=== PATIENT | female | born 1990 | race African-American/Black ===

== ENCOUNTER 2022-08-11 11:35 | Emergency (ER) | payer SELFPAY ==
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
[2022-08-11 11:47] VITALS: BP 162/78; PULSE 78; RESP 16; TEMP 36.6; O2SAT 97; BMI 32.9
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
--- OUTSIDE RECORDS SUMMARY | 2022-08-11 12:07 | XMS_ITS | Continuity of Care Document ---
Author Name Unknown Organization [facility] Address [address] [facility], [address]r d Floor, [address] [place] [address]- Care Team Providers Care Early Childhood Education Specialist Name Role Phone Alba Greene MD Primary Care Physician ( [phone] Encounter [facility] Date(s): 07/04/20 - 10/29/20 [facility] [address] [facility], 3rd Floor, [address] [place] [id number] Attending Physician: Neris Nazario MD Admitting Physician: Neris Nazario MD Allergies, Adverse Reactions, Alerts Substance Reaction Severity Status Latex itchiness, redness Active Immunizations Given and Recorded Vaccine Date Status Refusal Reason influenza virus vaccine, inactivated 12/22/18 Give n Not Given Vaccine Date Status Refusal Reason pneumococcal 23-valent vaccine 05/04/19 Not Given Parent Or Guardian Refuses Medications acetaZOLAMIDE 250 mg oral tablet 250 mg, 1, tablet, By Mouth, 2 times a day, # 60 tablet, Refills 0, Tot. Refills 0, Maintenance, 10/22/20 13:47:00 EDT, Route to Pharmacy Electronically, [facility]/pharmacy #[id number], 165, cm, 10/02/20 15:12:00 EDT, Height, 110.6, kg, 05/15/19 15:42:00 EST, Dry... Start Date: 10/22/20 Stop Date: 11/21/20 Status: Ordered BP cuff and monitor BP cuff and monitor, See Instructions, # 1 each, Refills 0, Tot. Refills 0, Maintenance, Dx: HTN ICD Code: I10 Check once a day and keep log, 08/27/20 16:50:00 EDT, Supply, 165, cm, 08/27/20 15:58:00EDT, Height, 110.6, kg, 05/15/19 15:42:00 EST, . Start Date: 08/27/20 Status: Ordered calcitriol 0.5 mcg oral capsule 1 capsule = 0.5 mcg, By Mouth, 2 times a day, # 60 capsule, 11 Refills, Maintenance, 10/02/20 6:52:00 EDT, Capsule, [facility]/pharmacy #[id number], 165, cm, 08/27/20 15:58:00 EDT, Height, 110.6, kg, 05/15/19 15:42:00 EST, Dry Weight Start Date: 10/02/20 Status: Ordered Caltrate 600 + D oral tablet 2 tablet, By Mouth, 3 times a day, # 180 tablet, 3 Refills, Maintenance, 05/10/19 15:56:00 EST, Tablet, [facility]/pharmacy #[id number], 2 tablet By Mouth 3 times a day,x30 days, 165.1, cm, 05/10/19 15:28:00 EST,Height, 115.3, kg, 05/05/19 12:45:00 EST, Dry Weight Start Date: 05/10/19 Stop Date: 09/07/19 Status: Ordered labetalol 100 mg oral tablet 1 tablet = 100 mg, By Mouth, 2 times a day, # 60 tablet, 2 Refills, Maintenance, 11/01/19 13:27:00 EDT, Tablet, [facility]/pharmacy #[id number], 165, cm, 10/30/19 13:34:00 EDT, Height, 110.6, kg, 05/15/19 15:42:00 EST, Dry Weight Start Date: 11/01/19 Status: Ordered levothyroxine 150 mcg (0.15 mg) oral tablet 1 tablet = 150 mcg, By Mouth, Daily, # 30 tablet, 11 Refills, Maintenance, 10/02/20 6:52:00 EDT, [facility]/pharmacy #[id number], Partial fill upon patient request if the prescription is for a schedule II opioid drug., 165, cm, 08/27/20 15:58:00 EDT, Height, 110.6... Start Date: 10/02/20 Status: Ordered potassium chloride 10 mEq oral tablet, extended release 2 tablet = 20 mEq, By Mouth, Daily, # 10 tablet, 3 Refills, Maintenance, 06/15/19 10:45:00 EDT, ER Tablet, [id number], 165, cm, 05/25/19 9:28:00 EST, Height, 110.6, kg, 05/15/19 15:42:00 EST,Dry Weight Start Date: 06/15/19 Stop Date: 07/05/19 Status: Ordered Multivitamins with Folic Acid 0.8 mg oral tablet 1 tablet, By Mouth, Daily, # 180 tablet, 5 Refills, Maintenance, 09/12/18 13:44:10 EDT, Tablet Start Date: 09/12/18 Stop Date: 08/27/21 Status: Ordered Tylenol 325 mg oral capsule 2 capsule = 650 mg, By Mouth, Every 6 hours, PRN as needed for pain, # 240 capsule, 1 Refills, Maintenance, 06/15/19 10:47:00 EDT, Capsule, [id number], 165, cm, 05/25/19 9:28:00 EST, Height, 110.6, kg, 05/15/19 15:42:00 EST, Dry Weight Start Date: 06/15/19 Status: Ordered Problem List Condition Effective Dates [...] OBI. 5baseline labs ordered at OBI 6w/ 1st pregnacy. 7~age 23/24. Pt was seen in [...]
--- OUTSIDE RECORDS SUMMARY | 2022-08-11 12:07 | XMS_ITS | Continuity of Care Document ---
Author Name Unknown Organization [facility] Address [address] [facility], 3r d Floor, [address] [place] [address]- Care Team Providers Care Steam Box Operator Name Role Phone Isela SOLANO, Jasmin Tellez Primary Care Physician Encounter [facility] Date(s): 11/22/19 - 11/29/19 [facility] [address], [address] Floor, [address] [place] [address]- [facility] Attending Physician: Chuck BLANCO, Kwasi Duncan Referring Physician: Gautam Joel Allergies, Adverse Reactions, Alerts Substance Reaction Severity Status Latex itchiness, redness Active Immunizations Given and Recorded Vaccine Date Status Refusal Reason influenza virus vaccine, inactivated 12/22/18 Give n Not Given Vaccine Date Status Refusal Reason pneumococcal 23-valent vaccine 05/04/19 Not Given Parent Or Guardian Refuses Medications acetaZOLAMIDE 250 mg oral tablet 500 mg, 2, tablet, By Mouth, 2 times a day, # 120 tablet, Refills 6, Tot. Refills 6, Maintenance, 05/25/19 9:52:00 EST, Route to Pharmacy Electronically, [id number], 165, cm, 05/25/19 9:28:00EST, Height, 110.6, kg, 05/15/19 15:42:00 EST, Dry... Start Date: 05/25/19 Stop Date: 12/21/19 Status: Ordered calcitriol 0.5 mcg oral capsule 1 capsule = 0.5 mcg, By Mouth, 2 times a day, # 60 capsule, 5 Refills, Maintenance, 09/03/19 8:18:00 EDT, Capsule, [id number], 165, cm, 05/25/19 9:28:00 EST, Height, 110.6, kg, 05/15/19 15:42:00 EST, Dry Weight Start Date: 09/03/19 Status: Ordered Caltrate 600 + D oral tablet 2 tablet, By Mouth, 3 times a day, # 180 tablet, 3 Refills, Maintenance, 05/10/19 15:56:00 EST, Tablet, [facility]/pharmacy #[id number], 2 tablet By Mouth 3 times a day,x30 days, 165.1, cm, 05/10/19 15:28:00 EST,Height, 115.3, kg, 05/05/19 12:45:00 EST, Dry Weight Start Date: 05/10/19 Stop Date: 09/07/19 Status: Ordered labetalol 100 mg oral tablet 1 tablet = 100 mg, By Mouth, 2 times a day, # 60 tablet, 2 Refills, Maintenance, 11/01/19 13:27:00 EDT, Tablet, [facility]/pharmacy #[id number], 165, cm, 10/30/19 13:34:00 EDT, Height, 110.6, kg, 05/15/19 15:42:00 EST, Dry Weight Start Date: 11/01/19 Status: Ordered levothyroxine 0.2 mg oral tablet 1 tablet = 200 mcg, By Mouth, Daily, # 90 tablet, 3 Refills, Maintenance, 03/02/19 9:52:58 EST, Tablet, 171, cm, 03/02/19 8:47:24 EST, Height, 111.6, kg, 12/29/18 8:33:45 EDT, Dry Weight Start Date: 03/02/19 Status: Ordered levothyroxine 175 mcg (0.175 mg) oral tablet 1 tablet = 175 mcg, By Mouth, Daily, # 60 tablet, 0 Refills, Maintenance, 10/31/19 21:10:00 EDT, Tablet, [facility]/pharmacy #[id number], 165, cm, 10/30/19 13:34:00 EDT, Height, 110.6, kg, 05/15/19 15:42:00 EST, Dry Weight Start Date: 10/31/19 Status: Ordered potassium chloride 10 mEq oral tablet, extended release 2 tablet = 20 mEq, By Mouth, Daily, # 10 tablet, 3 Refills, Maintenance, 06/15/19 10:45:00 EDT, ER Tablet, [facility]/pharmacy #[id number], 165, cm, 05/25/19 9:28:00 EST, Height, [...] of June 2018 (intermittent will eat seafood). Vital Signs Most recent to oldest [Reference Range]: 1 Height 165 cm (11/22/19 8:36 AM) Oxygen Saturation [94-100 %] 98 % (11/22/19 8:36 AM) Pulse Rate [55-90 bpm] 77 bpm (11/22/19 8:36 AM) Blood Pressure [90-138/55-84 mm Hg] 151/ 101mm Hg *H* (11/22/19 8:36 AM) Temperature [96.8-100.4 DegF] 98.2 DegF (11/22/19 8:36 AM) Blood pressure sites Arm, left (11/22/19 8:36 AM) Temperature Route Temporal (11/22/19 8:36 AM) Social History Social History Type Response Smoking Status Never (less than 100 in lifetime); Tobacco user in household: No entered on: 03/17/18 Sex
--- OUTSIDE RECORDS SUMMARY | 2022-08-11 12:07 | XMS_ITS | Continuity of Care Document ---
Author Name Unknown Organization [facility] ter Address [address] [place] [address]- Care Team Providers Care Consolidator Name Role Phone Teja Jonathan MONTOYA Primary Care Physician [phone] Encounter [facility] Date(s): 04/26/19 - 04/26/[address] [address]- [facility] Attending Physician: Kwasi Levy MD Allergies, Adverse Reactions, Alerts Substance Reaction Severity Status Latex itchiness, redness Active Immunizations Given and Recorded Vaccine Date Status Refusal Reason influenza virus vaccine, inactivated 12/22/18 Give n Medications aspirin 81 mg oral delayed release tablet 81 mg, 1, tablet, By Mouth, Daily, # 90 tablet, Refills 2, Tot. Refills 2, Maintenance, 12/01/18 17:07:48 EDT, Route to Pharmacy Electronically, [id number], [id number] Start Date: 12/01/18 Status: Ordered [...] 0 Refills, Maintenance, 04/07/19 14:34:00 EST, Capsule, [facility]/pharmacy #[id number], 165, cm, 04/07/19 12:09:00 EST, Height, 111, kg, 04/03/19 1:32:00 EST, Dry Weight Start Date: 04/07/19 Status: Ordered ibuprofen 800 mg oral tablet 800 mg, 1, tablet, By Mouth, Every 8 hours, not to exceed 3200 mg/day with food or milk, # 40 tablet, Refills 0, Tot. Refills 0, Acute 05/09/19 14:34:00 EST, 04/07/19 14:34:00 EST, Route to Pharmacy Electronically, [facility]/pharmacy #[id number], 165, cm, ... Start Date: 04/07/19 [...] 14:35:00 EST, 04/07/19 14:34:00 EST, REC Powder, [facility]/pharmacy #[id number], 17 Gm By Mouth Daily,Instr:dissolvein water [...] 04/07/19 14:34:00 EST, Route to Pharmacy Electronically, [facility]/pharmacy #[id number], 165, cm, 04/07/19 12:09:00 EST, Height, [...] 04/29/19 11:19:00 EST, 04/23/19 11:19:00 EST, Tablet, [facility]/pharmacy #[id number], 168, cm, 04/23/19 11:0... Start Date: [...]
--- OUTSIDE RECORDS SUMMARY | 2022-08-11 12:07 | XMS_ITS | Continuity of Care Document ---
Author Name Unknown Organization [facility] Address [address] [place] [address]- Care Team Providers Care Arcade Attendant Name Role Phone Jc SOLANO, Alba Chatterjee Primary Care Physician ( [phone] Encounter [facility] Date(s): 09/24/21 - 10/24/21 [facility] [address] [place] [address] [id number] Attending Physician: Nolvia Rojas Admitting Physician: Nolvia Rojas Referring Physician: Nolvia Rojas Allergies, Adverse Reactions, Alerts Substance Reaction Severity Status Latex itchiness, redness Active Immunizations Given and Recorded Vaccine Date Status Refusal Reason influenza virus vaccine, inactivated 12/22/18 Give n Not Given Vaccine Date Status Refusal Reason pneumococcal 23-valent vaccine 05/04/19 Not Given Parent Or Guardian Refuses Medications BP cuff and monitor BP cuff and monitor, See Instructions, # 1 each, Refills 0, Tot. Refills 0, Maintenance, Dx: HTN ICD Code: I10 Check once a day and keep log, 08/27/20 16:50:00 EDT, Supply, 165, cm, 08/27/20 15:58:00EDT, Height, 110.6, kg, 05/15/19 15:42:00 Dr.. GEOVANNI. Start Date: 08/27/20 Status: Ordered calcitriol 0.5 mcg oral capsule 1 capsule = 0.5 mcg, By Mouth, 2 times a day, # 60 capsule, 11 Refills, Maintenance, 10/01/21 13:02:00 EDT, Capsule, [id number], 168, cm, 09/24/21 23:34:00 EDT, Height, 109, kg, 09/24/21 23:34:00 EDT, Dry Weight Start Date: 10/01/21 Status: Ordered Caltrate 600 + D oral tablet 2 tablet, By Mouth, 2 times a day, # 120 tablet, 11 Refills, Maintenance, 11/28/20 15:35:00 EDT, Tablet, [id number], 2 tablet By Mouth 2 times a day,x30 days, 165, cm, 10/02/20 15:12:00 EDT, Height, 110.6, kg, 05/15/19 15:42:00 EST, Dry Weight Start Date: 11/28/20 Stop Date: 11/23/21 Status: Ordered levothyroxine 150 mcg (0.15 mg) oral tablet 1 tablet = 150 mcg, By Mouth, Daily, # 30 tablet, 11 Refills, Maintenance, 10/01/21 13:01:00 EDT, [id number], Partial fill upon patient request if the prescription is for a schedule II opioiddrug., 168, cm, 09/24/21 23:34:00 EDT, Height, 109,... Start Date: 10/01/21 Status: Ordered Multivitamins with Folic Acid 0.8 [...] carcinoma(Confirmed) Active Migraine without aura(Confirmed)(Stable) 3 Active Obese class II(Confirmed) Active Pheochromocytoma(Confirmed) 4 Active Multiple endocrine neoplasia(Confirmed) [...]
--- OUTSIDE RECORDS SUMMARY | 2022-08-11 12:07 | XMS_ITS | Continuity of Care Document ---
Author Name Unknown Organization [facility] Address [address] [place] [address]- Care Team Providers Care Electronic Maintenance Supervisor Name Role Phone Isela SOLANO, Jasmin Tellez Primary Care Physician Encounter [facility] Date(s): 05/05/20 - 06/06/20 [facility] [address] [place] [id number] Attending Physician: Sally Thompson MD Admitting Physician: Sally Thompson MD Referring Physician: Jasmin Weiss MD Allergies, Adverse Reactions, Alerts Substance Reaction [...] tablet, Refills 6, Tot. Refills 6, Maintenance, 01/21/20 11:44:00 EST, Route to Pharmacy Electronically, [facility]/pharmacy #[id number], 165, cm, 11/30/19 13:28:00 EDT, Height, 110.6, kg, 05/15/19 15:42:00 EST, . Start Date: 01/21/20 Stop Date: 08/18/20 Status: Ordered calcitriol 0.5 mcg oral capsule 1 capsule = 0.5 mcg, By Mouth, 2 times a day, # 60 capsule, 5 Refills, Maintenance, 03/17/20 11:38:00 EST, Capsule, [id number], 165, cm, 11/30/19 13:28:00 EDT, Height, 110.6, kg, 05/15/19 15:42:00 EST, Dry Weight Start Date: 03/17/20 Status: Ordered Caltrate 600 + D oral tablet 2 tablet, By Mouth, 3 times a day, # 180 tablet, 3 Refills, Maintenance, 05/10/19 15:56:00 EST, Tablet, [facility]/pharmacy #[id number], 2 tablet By Mouth 3 times a day,x30 days, 165.1, cm, 05/10/19 15:28:00 EST,Height, 115.3, kg, 05/05/19 12:45:00 EST, Dry Weight Start Date: 05/10/19 Stop Date: 09/07/19 Status: Ordered labetalol 100 mg oral tablet 1 tablet = 100 mg, By Mouth, 2 times a day, # 60 tablet, 2 Refills, Maintenance, 11/01/19 13:27:00 EDT, Tablet, [facility]/pharmacy #[id number], 165, cm, 10/30/19 13:34:00 EDT, Height, 110.6, kg, 05/15/19 15:42:00 EST, Dry Weight Start Date: 11/01/19 Status: Ordered levothyroxine 150 mcg (0.15 mg) oral tablet 1 tablet = 150 mcg, By Mouth, Daily, # 30 tablet, 1 Refills, Maintenance, 02/29/20 9:02:00 EST, [facility]/pharmacy #[id number], Partial fill upon patient request if the prescription is for a schedule II opioid drug., 165, cm, 11/30/19 13:28:00 EDT, Height, 110.6,... Start Date: 02/29/20 Status: Ordered potassium chloride 10 mEq oral tablet, extended release 2 tablet = 20 mEq, By Mouth, Daily, # 10 tablet, 3 Refills, Maintenance, 06/15/19 10:45:00 EDT, ER Tablet, [facility]/pharmacy #[id number], 165, cm, 05/25/19 9:28:00 EST, Height, [...]
--- OUTSIDE RECORDS SUMMARY | 2022-08-11 12:07 | XMS_ITS | Continuity of Care Document ---
Author Name Unknown Organization [facility] Address [address] [place] [address]- Care Team Providers Care Ecommerce Manager Name Role Phone Isela SOLANO, Jasmin Tellez Primary Care Physician Encounter [facility] Date(s): 12/04/19 - 01/03/20 [facility] [address] [place] [id number] Allergies, Adverse Reactions, Alerts Substance Reaction Severity [...] 05/25/19 9:52:00 EST, Route to Pharmacy Electronically, [facility]/pharmacy #[id number], 165, cm, 05/25/19 9:28:00EST, Height, 110.6, kg, 05/15/19 15:42:00 EST, Dry... Start Date: 05/25/19 Stop Date: 12/21/19 Status: Ordered calcitriol 0.5 mcg oral capsule 1 capsule = 0.5 mcg, By Mouth, 2 times a day, # 60 capsule, 5 Refills, Maintenance, 09/03/19 8:18:00 EDT, Capsule, [facility]/pharmacy #[id number], 165, cm, 05/25/19 9:28:00 EST, Height, 110.6, kg, 05/15/19 15:42:00 EST, Dry Weight Start Date: 09/03/19 Status: Ordered Caltrate 600 + D oral tablet 2 tablet, By Mouth, 3 times a day, # 180 tablet, 3 Refills, Maintenance, 05/10/19 15:56:00 EST, Tablet, [facility]/pharmacy #[id number], 2 tablet By Mouth 3 times a day,x30 days, 165.1, cm, 05/10/19 15:28:00 EST,Height, 115.3, kg, 05/05/19 12:45:00 EST, Dry Weight Start Date: 05/10/19 Stop Date: 09/07/19 Status: Ordered labetalol 100 mg oral tablet 1 tablet = 100 mg, By Mouth, 2 times a day, # 60 tablet, 2 Refills, Maintenance, 11/01/19 13:27:00 EDT, Tablet, [facility]/pharmacy #[id number], 165, cm, 10/30/19 13:34:00 EDT, Height, [...] 0 Refills, Maintenance, 10/31/19 21:10:00 EDT, Tablet, [facility]/pharmacy #[id number], 165, cm, 10/30/19 13:34:00 EDT, Height, 110.6, kg, 05/15/19 15:42:00 EST, Dry Weight Start Date: 10/31/19 Status: Ordered potassium chloride 10 mEq oral tablet, extended release 2 tablet = 20 mEq, By Mouth, Daily, # 10 tablet, 3 Refills, Maintenance, 06/15/19 10:45:00 EDT, ER Tablet, [facility]/pharmacy #[id number], 165, cm, 05/25/19 9:28:00 EST, Height, [...]
--- OUTSIDE RECORDS SUMMARY | 2022-08-11 12:07 | XMS_ITS | Continuity of Care Document ---
Author Name Unknown Organization [facility] Address Unknown Care Team Providers Care Clothes Marker Name Role Phone Alba Greene MD Primary Care Physician [place] [facility] 07/22/21 [facility] Allergies, Adverse Reactions, Alerts Substance Reaction Severity [...] 11 Refills, Maintenance, 10/02/20 6:52:00 EDT, Capsule, [id number], 165, cm, 08/27/20 15:58:00 EDT, Height, [...] Date: 11/28/20 Stop Date: 11/23/21 Status: Ordered labetalol 100 mg oral tablet 1 tablet = 100 mg, By Mouth, 2 times a day, # 60 tablet, 2 Refills, Maintenance, 11/01/19 13:27:00 EDT, Tablet, [facility]/pharmacy #[id number], 165, cm, 10/30/19 13:34:00 EDT, Height, 110.6, kg, 05/15/19 15:42:00 EST, Dry Weight Start Date: 11/01/19 Status: Ordered levothyroxine 150 mcg (0.15 mg) oral tablet 1 tablet = 150 mcg, By Mouth, Daily, # 30 tablet, 11 Refills, Maintenance, 10/02/20 6:52:00 EDT, [facility]/pharmacy #[id number], Partial fill upon patient request if the prescription is for a schedule II opioid drug., 165, cm, 08/27/20 15:58:00 EDT, Height, 110.6... Start Date: 10/02/20 Status: Ordered potassium chloride 10 mEq oral tablet, extended release 2 tablet = 20 mEq, By Mouth, Daily, # 10 tablet, 3 Refills, Maintenance, 06/15/19 10:45:00 EDT, ER Tablet, [facility]/pharmacy #[id number], 165, cm, 05/25/19 9:28:00 EST, [...] 1 Refills, Maintenance, 06/15/19 10:47:00 EDT, Capsule, [facility]/pharmacy #[id number], 165, cm, 05/25/19 9:28:00 EST, [...] after [facility]. 5baseline labs ordered at [facility] 6w pregnacy. 7~age 23/24. Pt was seen in [...]
--- OUTSIDE RECORDS SUMMARY | 2022-08-11 12:07 | XMS_ITS | Continuity of Care Document ---
Author Name Unknown Organization [facility] Address [address] [place] [address]- Care Team Providers Care Waste Management Recycling Technician Name Role Phone Jonathan Lezama DO Primary Care Physician Encounter [facility] [place] Date(s): 06/20/19 - 06/30/[address] [address]- [facility] Attending Physician: AdmNolvia brooks Admitting Physician: AdmtrNolvia Referring Physician: Admtr, Nolvia Allergies, Adverse Reactions, Alerts Substance Reaction Severity [...] 05/25/19 9:52:00 EST, Route to Pharmacy Electronically, [facility]/pharmacy #[id number], 165, cm, 05/25/19 9:28:00EST, Height, 110.6, kg, 05/15/19 15:42:00 EST, Dry... Start Date: 05/25/19 Stop Date: 12/21/19 Status: Ordered calcitriol 0.5 mcg oral capsule 1 capsule = 0.5 mcg, By Mouth, 2 times a day, # 60 capsule, 1 Refills, Maintenance, 06/26/19 14:50:00 EDT, Capsule, [facility], 165, cm, 05/25/19 9:28:00 EST, Height, 110.6, kg, 05/15/19 15:42:00 EST, Dry Weight Start Date: 06/26/19 Status: Ordered Caltrate 600 + D oral tablet 2 tablet, By Mouth, 3 times a day, # 180 tablet, 3 Refills, Maintenance, 05/10/19 15:56:00 EST, Tablet, [facility]/pharmacy #[id number], 2 tablet By Mouth 3 times a day,x30 days, 165.1, cm, 05/10/19 15:28:00 EST,Height, 115.3, kg, 05/05/19 12:45:00 EST, Dry Weight Start Date: 05/10/19 Stop Date: 09/07/19 Status: Ordered levothyroxine 0.2 mg oral tablet 1 tablet = 200 mcg, By Mouth, Daily, # 90 tablet, 3 Refills, Maintenance, 03/02/19 9:52:58 EST, Tablet, 171, cm, 03/02/19 8:47:24 EST, Height, 111.6, kg, 12/29/18 8:33:45 EDT, Dry Weight Start Date: 03/02/19 Status: Ordered potassium chloride 10 mEq oral tablet, extended release 2 tablet = 20 mEq, By Mouth, Daily, # 10 tablet, 3 Refills, Maintenance, 06/15/19 10:45:00 EDT, ER Tablet, [facility]/pharmacy #[id number], 165, cm, 05/25/19 9:28:00 [...] 1 Refills, Maintenance, 06/15/19 10:47:00 EDT, Capsule, [facility]/pharmacy #[id number], 165, cm, 05/25/19 9:28:00 [...]
--- OUTSIDE RECORDS SUMMARY | 2022-08-11 12:07 | XMS_ITS | Continuity of Care Document ---
Author Name Unknown Organization [facility] Address [address] [facility], [address] d Floor, [address] [place] [address]- Care Team Providers Care Lumber Sticker Name Role Phone Jonathan Lezama DO Primary Care Physician Encounter [facility] [place] Date(s): 05/25/19 - 06/04/19 [facility] [address] [facility], 3rd Floor, [address] [place] [address]- [facility] Attending Physician: Nolvia Rojas Admitting Physician: Nolvia [...] 05/25/19 9:52:00 EST, Route to Pharmacy Electronically, [id number], 165, cm, 05/25/19 9:28:00EST, Height, 110.6, kg, 05/15/19 15:42:00 EST, Dry... Start Date: 05/25/19 Stop Date: 12/21/19 Status: Ordered calcitriol 0.5 mcg oral capsule 1 capsule = 0.5 mcg, By Mouth, 2 times a day, # 60 capsule, 1 Refills, Maintenance, 05/06/19 13:18:00 EST, Capsule, [facility], 165.1, cm, 05/06/19 11:49:00 EST, Height, 115.3, kg, 05/05/19 12:45:00 EST, Dry Weight Start Date: 05/06/19 Status: Ordered calcium (as citrate)-vitamin D 315 mg-250 intl units oral tablet 3 tablet, By Mouth, 3 times a day, # 120 tablet, 1 Refills, Maintenance, 05/06/19 13:20:00 EST, [facility], 3 tablet By Mouth 3 times a day, 165.1, cm, 05/06/19 11:49:00 EST, Height, 115.3, kg, 05/05/19 12:45:00 EST, Dry Weight Start Date: 05/06/19 Status: Ordered Caltrate 600 + D oral tablet 2 tablet, By Mouth, 3 times a day, # 180 tablet, 3 Refills, Maintenance, 05/10/19 15:56:00 EST, Tablet, [id number], 2 tablet By Mouth 3 [...] mEq, By Mouth, Daily, # 10 tablet, 0 Refills, Maintenance, 05/22/19 11:48:00 EST, ER Tablet, [facility], 165, cm, 05/21/19 23:05:00 EST, Height, 110.6, kg, 05/15/19 15:42:00 EST, Dry Weight Start Date: 05/22/19 Stop Date: 05/27/19 Status: Ordered Multivitamins with Folic Acid 0.8 mg oral tablet 1 tablet, By Mouth, Daily, # 180 tablet, 5 Refills, Maintenance, 09/12/18 13:44:10 EDT, Tablet Start Date: 09/12/18 Stop Date: 08/27/21 Status: Ordered Problem List Condition Effective Dates [...]
--- OUTSIDE RECORDS SUMMARY | 2022-08-11 12:07 | XMS_ITS | Continuity of Care Document ---
Author Name Unknown Organization [facility] Address [address] [place] [address]- Care Team Providers Care Accountant Supervisor Name Role Phone Jc SOLANO, Alba Chatterjee Primary Care Physician ( [phone] [place] [facility] [place] Date(s): 10/07/21 - 11/06/21 [facility] [address] [place] [address] Attending Physician: Nolvia Rojas Admitting Physician: AdmNolvia brooks Referring Physician: AdmNolvia brooks Allergies, Adverse Reactions, Alerts Substance Reaction Severity [...] times a day, # 60 tablet, Refills 5, Tot. Refills 5, Maintenance, 10/26/21 12:00:00 EDT, Route to Pharmacy Electronically, [facility]/pharmacy #[id number], 168, cm, 09/24/21 23:34:00 EDT, Height, 109, kg, 09/24/21 23:34:00 EDT, Dry W... Start Date: 10/26/21 Stop Date: 04/24/22 Status: Ordered BP cuff and monitor BP cuff and monitor, See Instructions, # 1 each, Refills 0, Tot. Refills 0, Maintenance, Dx: HTN ICD Code: I10 Check once a day and keep log, 08/27/20 16:50:00 EDT, Supply, 165, cm, 08/27/20 15:58:00EDT, Height, 110.6, kg, 05/15/19 15:42:00 ESTDr... Start Date: 08/27/20 Status: Ordered calcitriol 0.5 mcg oral capsule 1 capsule = 0.5 mcg, By Mouth, 2 times a day, # 60 capsule, 11 Refills, Maintenance, 10/01/21 13:02:00 EDT, Capsule, [facility]/pharmacy #[id number], 168, cm, 09/24/21 23:34:00 EDT, Height, 109, kg, 09/24/21 23:34:00 EDT, Dry Weight Start Date: 10/01/21 Status: Ordered Caltrate 600 + D oral tablet 2 tablet, By Mouth, 2 times a day, # 120 tablet, 11 Refills, Maintenance, 11/28/20 15:35:00 EDT, Tablet, [facility]/pharmacy #[id number], 2 tablet By Mouth 2 times [...]
--- OUTSIDE RECORDS SUMMARY | 2022-08-11 12:07 | XMS_ITS | Continuity of Care Document ---
Author Name Unknown Organization [facility] Address [address] [place] [address]- Care Team Providers Care Paper Making Machine Operator Name Role Phone Isela SOLANO, Jasmin Tellez Primary Care Physician Encounter [facility] Date(s): 06/03/20 - 07/03/20 [facility] [address] [place] [id number] Allergies, Adverse Reactions, Alerts Substance Reaction Severity Status Latex itchiness, redness Active Immunizations Given and Recorded Vaccine Date Status Refusal Reason influenza virus vaccine, inactivated 12/22/18 Give n Not Given Vaccine Date Status Refusal Reason pneumococcal 23-valent vaccine 05/04/19 Not Given Parent Or Guardian Refuses Medications acetaZOLAMIDE 250 mg oral tablet See Instructions, 2 tablets by mouth in morning and 1 tablet in evening x 1 month then 1 tablet twice daily, # 90 tablet, Refills 2, Tot. Refills 2, Maintenance, 06/26/20 13:01:00 EDT, Instructions Replace Required Details, Route to Pharmacy Electroni... Start Date: 06/26/20 Status: Ordered calcitriol 0.5 mcg oral capsule [...] 3 Refills, Maintenance, 05/10/19 15:56:00 EST, [facility]t, [id number], 2 tablet By Mouth 3 times a day,x30 days, 165.1, cm, 05/10/19 15:28:00 EST,Height, 115.3, kg, 05/05/19 12:45:00 EST, Dry Weight Start Date: 05/10/19 Stop Date: 09/07/19 Status: Ordered labetalol 100 mg oral tablet 1 tablet = 100 mg, By Mouth, 2 times a day, # 60 tablet, 2 Refills, Maintenance, 11/01/19 13:27:00 EDT, Tablet, [facility]/pharmacy #[id number], 165, cm, 10/30/19 13:34:00 EDT, Height, 110.6, kg, 05/15/19 15:42:00 EST, Dry Weight Start Date: 11/01/19 Status: Ordered levothyroxine 150 mcg (0.15 mg) oral tablet 1 tablet = 150 mcg, By Mouth, Daily, # 30 tablet, 2 Refills, Maintenance, 06/23/20 10:26:00 EDT, [facility]/pharmacy #[id number], Partial fill upon patient request if the prescription is for a schedule II opioid drug., 165, cm, 11/30/19 13:28:00 EDT, Height, 110.6... Start Date: 06/23/20 Status: Ordered potassium chloride 10 mEq oral tablet, extended release 2 tablet = 20 mEq, By Mouth, Daily, # 10 tablet, 3 Refills, Maintenance, 06/15/19 10:45:00 EDT, ER Tablet, [facility]/pharmacy #[id number], 165, cm, 05/25/19 9:28:00 EST, [...]
--- OUTSIDE RECORDS SUMMARY | 2022-08-11 12:07 | XMS_ITS | Continuity of Care Document ---
Author Name Unknown Organization [facility] Address [address] [place] [address]- Care Team Providers Care Glass Science Engineer Name Role Phone Alba Greene MD Primary Care Physician [place] [facility] [place] 11[place]25[place]20 [place] 12/28/20 [facility] [address] [place] [id number] Attending Physician: Mayda Lyons DO Admitting Physician: Mayda Lyons DO Referring Physician: Alba Greene MD Allergies, Adverse Reactions, Alerts Substance Reaction [...] 10/22/20 13:47:00 EDT, Route to Pharmacy Electronically, [facility]/pharmacy #[id number], 165, cm, 10/02/20 15:12:00 EDT, Height, [...] 11 Refills, Maintenance, 10/02/20 6:52:00 EDT, Capsule, [facility]/pharmacy #[id number], 165, cm, 08/27/20 15:58:00 EDT, Height, 110.6, kg, 05/15/19 15:42:00 EST, Dry Weight Start Date: 10/02/20 Status: Ordered Caltrate 600 + D oral tablet 2 tablet, By Mouth, 2 times a day, # 120 tablet, 11 Refills, Maintenance, 11/28/20 15:35:00 EDT, Tablet, [facility]/pharmacy #[id number], 2 tablet By Mouth 2 times a day,x30 days, 165, cm, 10/02/20 15:12:00 EDT, Height, 110.6, kg, 05/15/19 15:42:00 EST, Dry Weight Start Date: 11/28/20 Stop Date: 11/23/21 Status: Ordered labetalol 100 mg oral tablet 1 tablet = 100 mg, By Mouth, 2 times a day, # 60 tablet, 2 Refills, Maintenance, 11/01/19 13:27:00 EDT, Tablet, [facility]/pharmacy #[id number], 165, cm, 10/30/19 13:34:00 EDT, Height, 110.6, kg, 05/15/19 15:42:00 EST, Dry Weight Start Date: 11/01/19 Status: Ordered levothyroxine 150 mcg (0.15 mg) oral tablet 1 tablet = 150 mcg, By Mouth, Daily, # 30 tablet, 11 Refills, Maintenance, 10/02/20 6:52:00 EDT, [facility]/pharmacy #[id number], Partial fill upon patient request if [...] 1 Refills, Maintenance, 06/15/19 10:47:00 EDT, Capsule, [facility]/pharmacy #[id number], 165, cm, 05/25/19 9:28:00 EST, Height, [...]
--- OUTSIDE RECORDS SUMMARY | 2022-08-11 12:07 | XMS_ITS | Continuity of Care Document ---
Author Name Unknown Organization [facility] Address [address] [place] [address]- Care Team Providers Care Interface Designer Name Role Phone Teja Jonathan MONTOYA Primary Care Physician [phone] Encounter [facility] [place] Date(s): 04/17/19 - 04/27/19 [facility] [address] [place] [address]- [facility] Attending Physician: Admtodd, Armando8 Admitting Physician: Admtr, Ar8 Referring Physician: Admtr, Ar8 Allergies, Adverse Reactions, Alerts Substance Reaction Severity Status Latex itchiness, redness Active Immunizations Given and Recorded Vaccine Date Status Refusal Reason influenza virus vaccine, inactivated 12/22/18 Give n Medications aspirin 81 mg oral delayed release tablet 81 mg, 1, tablet, By Mouth, Daily, # 90 tablet, Refills 2, Tot. Refills 2, Maintenance, 12/01/18 17:07:48 EDT, Route to Pharmacy Electronically, [id number], [id number] Start Date: 12/01/18 Status: Ordered [...] Refills, Maintenance, 04/07/19 14:34:00 EST, Capsule, [facility]/pharmacy #[id number], 165, cm, 04/07/19 12:09:00 [...] 14:34:00 EST, Route to Pharmacy Electronically, [facility]/pharmacy #[id number], 165, cm, ... Start [...] EST, 04/07/19 14:34:00 EST, REC Powder, [facility]/pharmacy #[id number], 17 Gm By Mouth [...] 14:34:00 EST, Route to Pharmacy Electronically, [facility]/pharmacy #[id number], 165, cm, 04/07/19 12:09:00 [...] 11:19:00 EST, 04/23/19 11:19:00 EST, Tablet, [facility]/pharmacy #[id number], 168, cm, 04/23/19 11:0... [...]
--- OUTSIDE RECORDS SUMMARY | 2022-08-11 12:07 | XMS_ITS | Continuity of Care Document ---
Author Name Unknown Organization [facility] Address [address] [place] [address]- Care Team Providers Care Rigging Man Name Role Phone Isela SOLANO, Jasmin Tellez Primary Care Physician Encounter [facility] Date(s): 10/30/19 - 11/29/19 [facility] [address] [place] [id number]- [facility] Allergies, Adverse Reactions, Alerts Substance Reaction Severity [...] 05/25/19 9:52:00 EST, Route to Pharmacy Electronically, [facility]/pharmacy #[id number], 165, cm, 05/25/19 9:28:00EST, Height, 110.6, kg, 05/15/19 15:42:00 EST, Dry... Start Date: 05/25/19 Stop Date: 12/21/19 Status: Ordered calcitriol 0.5 mcg oral capsule 1 capsule = 0.5 mcg, By Mouth, 2 times a day, # 60 capsule, 5 Refills, Maintenance, 09/03/19 8:18:00 EDT, Capsule, [facility]/pharmacy #[id number], 165, cm, 05/25/19 9:28:00 EST, Height, 110.6, kg, 05/15/19 15:42:00 EST, Dry Weight Start Date: 09/03/19 Status: Ordered Caltrate 600 + D oral tablet 2 tablet, By Mouth, 3 times a day, # 180 tablet, 3 Refills, Maintenance, 05/10/19 15:56:00 EST, Tablet, [facility]/pharmacy #[id number], 2 tablet By Mouth 3 times a day,x30 days, 165.1, cm, 05/10/19 15:28:00 EST,Height, 115.3, kg, 05/05/19 12:45:00 EST, Dry Weight Start Date: 05/10/19 Stop Date: 09/07/19 Status: Ordered labetalol 100 mg oral tablet 1 tablet = 100 mg, By Mouth, 2 times a day, # 60 tablet, 2 Refills, Maintenance, 11/01/19 13:27:00 EDT, Tablet, [facility]/pharmacy #[id number], 165, cm, 10/30/19 13:34:00 EDT, [...] 0 Refills, Maintenance, 10/31/19 21:10:00 EDT, Tablet, [facility]/pharmacy #[id number], 165, cm, 10/30/19 13:34:00 EDT, Height, 110.6, kg, 05/15/19 15:42:00 EST, Dry Weight Start Date: 10/31/19 Status: Ordered potassium chloride 10 mEq oral tablet, extended release 2 tablet = 20 mEq, By Mouth, Daily, # 10 tablet, 3 Refills, Maintenance, 06/15/19 10:45:00 EDT, ER Tablet, [facility]/pharmacy #[id number], 165, cm, 05/25/19 9:28:00 EST, [...]
--- OUTSIDE RECORDS SUMMARY | 2022-08-11 12:07 | XMS_ITS | Continuity of Care Document ---
Author Name Unknown Organization [facility] Address [address] [place] [address]- Care Team Providers Care Character Artist Name Role Phone Jc SOLANO, Alba Chatterjee Primary Care Physician ( [phone] Encounter [facility] Date(s): 09/25/21 - 10/25/21 [facility] [address] [place] [id number] Allergies, Adverse Reactions, Alerts Substance Reaction Severity [...] 1 Refills, Maintenance, 06/15/19 10:47:00 EDT, Capsule, [facility]/pharmacy #[id number], 165, cm, 05/25/19 9:28:00 EST, Height, [...] after OBI. 5baseline labs ordered at [facility] pregnacy. 7~age 23/24. Pt was seen in [...]
--- OUTSIDE RECORDS SUMMARY | 2022-08-11 12:07 | XMS_ITS | Continuity of Care Document ---
Author Name Unknown Organization [facility] ter Address [address] [place] [address]- Care Team Providers Care Care Rep Name Role Phone Isela SOLANO, Jasmin Tellez Primary Care Physician Encounter [facility] [place] Date(s): 04/08/19 - 10/03/[address] [address]- [facility] Discharge Disposition: A-D/C Home Attending Physician: Sy Armstrong MD Admitting Physician: Sy Armstrong MD Referring Physician: Sy Armstrong MD Allergies, Adverse Reactions, Alerts Substance Reaction [...] 9:52:00 EST, Route to Pharmacy Electronically, [facility]/pharmacy #[id number], 165, cm, 05/25/19 9:28:00EST, Height, 110.6, kg, 05/15/19 15:42:00 EST, Dry... Start Date: 05/25/19 Stop Date: 12/21/19 Status: Ordered calcitriol 0.5 mcg oral capsule 1 capsule = 0.5 mcg, By Mouth, 2 times a day, # 60 capsule, 5 Refills, Maintenance, 09/03/19 8:18:00 EDT, Capsule, [facility]/pharmacy #[id number], 165, cm, 05/25/19 9:28:00 EST, Height, 110.6, kg, 05/15/19 15:42:00 EST, Dry Weight Start Date: 09/03/19 Status: Ordered Caltrate 600 + D oral tablet 2 tablet, By Mouth, 3 times a day, # 180 tablet, 3 Refills, Maintenance, 05/10/19 15:56:00 EST, Tablet, [facility]/pharmacy #[id number], 2 tablet By Mouth 3 times [...] Maintenance, 06/15/19 10:45:00 EDT, ER Tablet, [facility]/pharmacy #[id number], 165, cm, 05/25/19 9:28:00 EST, Height, [...] Refills, Maintenance, 06/15/19 10:47:00 EDT, Capsule, [facility]/pharmacy #[id number], 165, cm, 05/25/19 9:28:00 EST, Height, [...]
--- OUTSIDE RECORDS SUMMARY | 2022-08-11 12:07 | XMS_ITS | Continuity of Care Document ---
Author Name Unknown Organization [facility] ter Address [address] [place] [address]- Care Team Providers Care Supervisor Cytogenetic Laboratory Name Role Phone Teja Jonathan MONTOYA Primary Care Physician Encounter [facility] [place] Date(s): 04/11/19 - 04/12/[address] [address]- [facility] Discharge Disposition: A-D/C Home Attending Physician: Miri Monk MD Admitting Physician: Miri Monk MD Referring Physician: Miri Monk MD Allergies, Adverse Reactions, Alerts Substance Reaction Severity Status Latex itchiness, redness Active Immunizations Given and Recorded Vaccine Date Status Refusal Reason influenza virus vaccine, inactivated 12/22/18 Give n Medications aspirin 81 mg oral delayed release tablet 81 mg, 1, tablet, By Mouth, Daily, # 90 tablet, Refills 2, Tot. Refills 2, Maintenance, 12/01/18 17:07:48 EDT, Route to Pharmacy Electronically, [id number], [id number] Start Date: 12/01/18 Status: Ordered [...] 0 Refills, Maintenance, 04/07/19 14:34:00 EST, Capsule, [facility]/pharmacy #[id number], 165, cm, 04/07/19 12:09:00 EST, Height, 111, kg, 04/03/19 1:32:00 EST, Dry Weight Start Date: 04/07/19 Status: Ordered ibuprofen 800 mg oral tablet 800 mg, 1, tablet, By Mouth, Every 8 hours, not to exceed 3200 mg/day with food or milk, # 40 tablet, Refills 0, Tot. Refills 0, Acute 05/09/19 14:34:00 EST, 04/07/19 14:34:00 EST, Route to Pharmacy Electronically, [facility]/pharmacy #[id number], 165, cm, ... Start Date: [...] 14:35:00 EST, 04/07/19 14:34:00 EST, REC Powder, [facility]/pharmacy #[id number], 17 Gm By Mouth Daily,Instr:dissolvein [...] 04/07/19 14:34:00 EST, Route to Pharmacy Electronically, [facility]/pharmacy #[id number], 165, cm, 04/07/19 12:09:00 EST, Height, 111, kg, 04/03/19 1:32:00 E... Start Date: 04/07/19 Stop Date: 05/09/19 Status: Ordered Problem List Condition Effective Dates [...] Most recent to oldest [Reference Range]: 1 2 3 Height 165 cm (04/12/19 5:56 AM) 165 cm (04/12/19 2:29 AM) 165 cm (04/12/19 12:08 AM) Weight 116.3 kg (04/11/19 5:53 PM) 116.3 kg (04/11/19 10:00 AM) Oxygen Saturation [94-100 %] 100 % (04/12/19 3:48 PM) 100 % (04/12/19 8:00 AM) 100 % (04/12/19 5:56 AM) Pulse Rate [55-90 bpm] 90 bpm (04/12/19 3:48 PM) 88 bpm (04/12/19 8:00 AM) 92 bpm *H* (04/12/19 5:56 AM) Body Mass Index [18.5-24.99] 42.72 *>HHI* (04/11/19 5:53 PM) Blood Pressure [90-138/55-84 mm Hg] 135/84mm Hg (04/12/19 3:48 PM) 129/80mm Hg (04/12/19 8:00 AM) 134/82mm Hg (04/12/19 5:56 AM) Respiratory Rate [16-30 br/min] 20 br/min (04/12/19 3:48 PM) 20 br/min (04/12/19 8:00 AM) 20 br/min (04/12/19 5:56 AM) Temperature [96.8-100.4 DegF] 98.7 DegF (04/12/19 3:48 PM) 98.5 DegF (04/12/19 8:00 AM) 98.4 DegF (04/12/19 5:56 AM) Mode of Delivery (Oxygen) Room air (04/12/19 3:48 PM) Room air (04/12/19 8:00 AM) Room air (04/12/19 5:56 AM) Blood pressure sites Arm, right (04/12/19 3:48 PM) Arm, right (04/12/19 8:00 AM) Arm, right (04/12/19 5:56 AM) Temperature Route Oral (04/12/19 3:48 PM) Oral (04/12/19 8:00 AM) Oral (04/12/19 5:56 AM) Dry Weight 116.3 kg (04/11/19 5:53 PM) Weight Obtained Via Standing scale (04/11/19 10:00 AM) Sensory deficits None (04/11/19 5:53 PM) Mobility assistance Independent (04/11/19 5:53 PM) Social History Social History Type Response Smoking Status Never (less than 100 in lifetime); Tobacco user in household: No entered on: 03/17/18 Sex
--- OUTSIDE RECORDS SUMMARY | 2022-08-11 12:07 | XMS_ITS | Continuity of Care Document ---
Author Name Unknown Organization [facility] Address [address] [facility], [address] d Floor, [address] [place] [address]- Care Team Providers Care Component Prep Operator Name Role Phone Jonathan Lezama DO Primary Care Physician Encounter [facility] Date(s): 05/25/19 - 06/01/19 [facility] [address] [facility], 3rd Floor, [address] [place] [address]- [facility] Attending Physician: Not on Staff, Attending MD Referring Physician: Tirso Meehan Allergies, Adverse Reactions, Alerts Substance Reaction Severity [...] 05/25/19 9:52:00 EST, Route to Pharmacy Electronically, [facility]/pharmacy #[id number], 165, cm, 05/25/19 9:28:00EST, Height, 110.6, kg, 05/15/19 15:42:00 EST, Dry... Start Date: 05/25/19 Stop Date: 12/21/19 Status: Ordered calcitriol 0.5 mcg oral capsule 1 capsule = 0.5 mcg, By Mouth, 2 times a day, # 60 capsule, 1 Refills, Maintenance, 05/06/19 13:18:00 EST, Capsule, [facility], 165.1, cm, 05/06/19 11:49:00 EST, Height, 115.3, kg, 05/05/19 12:45:00 EST, Dry Weight Start Date: 05/06/19 Status: Ordered calcium (as citrate)-vitamin D 315 mg-250 intl units oral tablet 3 tablet, By Mouth, 3 times a day, # 120 tablet, 1 Refills, Maintenance, 05/06/19 13:20:00 EST, [facility], 3 tablet By Mouth 3 times a day, 165.1, cm, 05/06/19 11:49:00 EST, Height, 115.3, kg, 05/05/19 12:45:00 EST, Dry Weight Start Date: 05/06/19 Status: Ordered Caltrate 600 + D oral tablet 2 tablet, By Mouth, 3 times a day, # 180 tablet, 3 Refills, Maintenance, 05/10/19 15:56:00 EST, Tablet, [facility]/pharmacy #[id number], 2 tablet By Mouth 3 times [...] Refills, Maintenance, 05/22/19 11:48:00 EST, ER Tablet, [facility] 3, 165, cm, 05/21/19 23:05:00 [...] oldest [Reference Range]: 1 Height 165 cm (05/25/19 9:28 AM) Oxygen Saturation [94-100 %] 99 % (05/25/19 9:28 AM) Pulse Rate [55-90 bpm] 64 bpm (05/25/19 9:28 AM) Blood Pressure [90-138/55-84 mm Hg] 144/ 94mm Hg *H* (05/25/19 9:28 AM) Mode of Delivery (Oxygen) Room air (05/25/19 9:28 AM) Social History Social History Type Response Smoking Status Never (less than 100 in lifetime); Tobacco user in household: No entered on: 03/17/18 Sex
--- OUTSIDE RECORDS SUMMARY | 2022-08-11 12:07 | XMS_ITS | Continuity of Care Document ---
Author Name Unknown Organization [facility] Address [address] [place] [address]- Care Team Providers Care Mechanical Manufacturing Engineer Name Role Phone Alba Greene MD Primary Care Physician ( [phone] Encounter [facility] Date(s): 09/29/20 - 10/29/20 [facility] [address] [place] [id number] Allergies, Adverse Reactions, Alerts Substance Reaction [...] 10/22/20 13:47:00 EDT, Route to Pharmacy Electronically, [facility]/pharmacy #[id number], 165, cm, 10/02/20 15:12:00 EDT, Height, [...] 15:58:00EDT, Height, 110.6, kg, 05/15/19 15:42:00 EST, Dr... Start Date: 08/27/20 Status: Ordered calcitriol 0.5 mcg oral capsule 1 capsule = 0.5 mcg, By Mouth, 2 times a day, # 60 capsule, 11 Refills, Maintenance, 10/02/20 6:52:00 EDT, Capsule, [facility]/pharmacy #[id number], 165, cm, 08/27/20 15:58:00 EDT, Height, [...] 2 Refills, Maintenance, 11/01/19 13:27:00 EDT, Tablet, [id number], 165, cm, 10/30/19 13:34:00 EDT, Height, 110.6, kg, 05/15/19 15:42:00 EST, Dry Weight Start Date: 11/01/19 Status: Ordered levothyroxine 150 mcg (0.15 mg) oral tablet 1 tablet = 150 mcg, By Mouth, Daily, # 30 tablet, 11 Refills, Maintenance, 10/02/20 6:52:00 EDT, [id number], Partial fill upon patient request if [...]
--- OUTSIDE RECORDS SUMMARY | 2022-08-11 12:07 | XMS_ITS | Continuity of Care Document ---
Author Name Unknown Organization [facility] Address [address] [place] [address]- Care Team Providers Care Job Hand Name Role Phone Isela SOLANO, Jasmin Tellez Primary Care Physician Encounter [facility] Date(s): 11/30/19 - 12/30/19 [facility] [address] [place] [address]- [facility] Attending Physician: Nolvia Rojas Admitting Physician: Nolvia Rojas Referring Physician: AdmtrNolvia Allergies, Adverse Reactions, Alerts Substance Reaction Severity [...] 3 Refills, Maintenance, 05/10/19 15:56:00 EST, Tablet, [facility]/pharmacy #[id number], 2 tablet By Mouth 3 times a day,x30 days, 165.1, cm, 05/10/19 15:28:00 EST,Height, 115.3, kg, 05/05/19 12:45:00 EST, Dry Weight Start Date: 05/10/19 Stop Date: 09/07/19 Status: Ordered labetalol 100 mg oral tablet 1 tablet = 100 mg, By Mouth, 2 times a day, # 60 tablet, 2 Refills, Maintenance, 11/01/19 13:27:00 EDT, Tablet, [facility]/pharmacy #[id number], 165, cm, 10/30/19 13:34:00 EDT, [...] 0 Refills, Maintenance, 10/31/19 21:10:00 EDT, Tablet, [facility]/pharmacy #[id number], 165, cm, 10/30/19 13:34:00 EDT, Height, 110.6, kg, 05/15/19 15:42:00 EST, Dry Weight Start Date: 10/31/19 Status: Ordered potassium chloride 10 mEq oral tablet, extended release 2 tablet = 20 mEq, By Mouth, Daily, # 10 tablet, 3 Refills, Maintenance, 06/15/19 10:45:00 EDT, ER Tablet, [facility]/pharmacy #[id number], 165, cm, 05/25/19 9:28:00 EST, [...]
--- OUTSIDE RECORDS SUMMARY | 2022-08-11 12:07 | XMS_ITS | Continuity of Care Document ---
Author Name Unknown Organization [facility] Address [address] [facility], [address] d Floor, [address] [place] [address]- Care Team Providers Care Boat Officer Name Role Phone Isela SOLANO, Jasmin Tellez Primary Care Physician Encounter [facility] R [id number] Date(s): 11/22/19 - 12/22/19 [facility] [address], 3rd Floor, [address] [place] [address]- [facility] Attending Physician: Nolvia Rojas Admitting Physician: AdmtrNolvia Referring Physician: Admtr, Ar8 Allergies, Adverse Reactions, [...] 05/25/19 9:52:00 EST, Route to Pharmacy Electronically, [facility]/pharmacy #[id number], 165, cm, 05/25/19 9:28:00EST, Height, [...] 3 Refills, Maintenance, 05/10/19 15:56:00 EST, Tablet, [facility]/pharmacy #[id number], 2 tablet By Mouth 3 [...] 0 Refills, Maintenance, 10/31/19 21:10:00 EDT, Tablet, [facility]/pharmacy #[id number], 165, [...]
--- OUTSIDE RECORDS SUMMARY | 2022-08-11 12:07 | XMS_ITS | Continuity of Care Document ---
Author Name Unknown Organization [facility] Address [address] [place] [address]- Care Team Providers Care Beck Operator Name Role Phone Isela SOLANO, Jasmin Tellez Primary Care Physician Encounter [facility] Date(s): 10/05/19 - 11/04/19 [facility] [address] [place] [id number]- [facility] Allergies, Adverse Reactions, Alerts Substance Reaction Severity [...] 05/25/19 9:52:00 EST, Route to Pharmacy Electronically, [facility]/pharmacy #[id number], 165, cm, 05/25/19 9:28:00EST, Height, 110.6, kg, 05/15/19 15:42:00 EST, Dry... Start Date: 05/25/19 Stop Date: 12/21/19 Status: Ordered calcitriol 0.5 mcg oral capsule 1 capsule = 0.5 mcg, By Mouth, 2 times a day, # 60 capsule, 5 Refills, Maintenance, 09/03/19 8:18:00 EDT, Capsule, [facility]/pharmacy #[id number], 165, cm, 05/25/19 9:28:00 EST, Height, 110.6, kg, 05/15/19 15:42:00 EST, Dry Weight Start Date: 09/03/19 Status: Ordered Caltrate 600 + D oral tablet 2 tablet, By Mouth, 3 times a day, # 180 tablet, 3 Refills, Maintenance, 05/10/19 15:56:00 EST, Tablet, [facility]/pharmacy #[id number], 2 tablet By Mouth 3 times a day,x30 days, 165.1, cm, 05/10/19 15:28:00 EST,Height, 115.3, kg, 05/05/19 12:45:00 EST, Dry Weight Start Date: 05/10/19 Stop Date: 09/07/19 Status: Ordered labetalol 100 mg oral tablet 1 tablet = 100 mg, By Mouth, 2 times a day, # 60 tablet, 2 Refills, Maintenance, 11/01/19 13:27:00 EDT, Tablet, [facility]/pharmacy #[id number], 165, cm, 10/30/19 13:34:00 EDT, Height, [...] 0 Refills, Maintenance, 10/31/19 21:10:00 EDT, Tablet, [facility]/pharmacy #[id number], 165, cm, 10/30/19 13:34:00 EDT, Height, 110.6, kg, 05/15/19 15:42:00 EST, Dry Weight Start Date: 10/31/19 Status: Ordered potassium chloride 10 mEq oral tablet, extended release 2 tablet = 20 mEq, By Mouth, Daily, # 10 tablet, 3 Refills, Maintenance, 06/15/19 10:45:00 EDT, ER Tablet, [facility]/pharmacy #[id number], 165, cm, 05/25/19 9:28:00 EST, Height, [...]
--- OUTSIDE RECORDS SUMMARY | 2022-08-11 12:07 | XMS_ITS | Continuity of Care Document ---
Author Name Unknown Organization [facility] Address Unknown Care Team Providers Care Lamp Mechanic Name Role Phone Alba Greene MD Primary Care Physician Encounter [facility] Date(s): 01/30/21 - 03/01/21 [facility] Allergies, Adverse Reactions, Alerts Substance Reaction [...] times a day, # 60 tablet, Refills 3, Tot. Refills 3, Maintenance, 01/30/21 17:51:00 EST, Route to Pharmacy Electronically, [facility]/pharmacy #[id number], 165, cm, 01/16/21 11:29:00 EDT, Height, 110.6, kg, 05/15/19 15:42:00 EST, Dry... Start Date: 01/30/21 Stop Date: 05/30/21 Status: Ordered BP cuff and monitor BP [...] 11 Refills, Maintenance, 11/28/20 15:35:00 EDT, Tablet, [facility]/pharmacy #[id number], 2 tablet By Mouth 2 times a day,x30 days, 165, cm, 10/02/20 15:12:00 EDT, Height, 110.6, kg, 05/15/19 15:42:00 EST, Dry Weight Start Date: 11/28/20 Stop Date: 11/23/21 Status: Ordered labetalol 100 mg oral tablet 1 tablet = 100 mg, By Mouth, 2 times a day, # 60 tablet, 2 Refills, Maintenance, 11/01/19 13:27:00 EDT, Tablet, [facility]/pharmacy #[id number], 165, cm, 10/30/19 13:34:00 EDT, Height, 110.6, kg, 05/15/19 15:42:00 EST, Dry Weight Start Date: 11/01/19 Status: Ordered levothyroxine 150 mcg (0.15 mg) oral tablet 1 tablet = 150 mcg, By Mouth, Daily, # 30 tablet, 11 Refills, Maintenance, 10/02/20 6:52:00 EDT, [facility]/pharmacy #[id number], Partial fill upon patient request if the prescription is for a schedule II opioid drug., 165, cm, 08/27/20 15:58:00 EDT, Height, 110.6... Start Date: 10/02/20 Status: Ordered potassium chloride 10 mEq oral tablet, extended release 2 tablet = 20 mEq, By Mouth, Daily, # 10 tablet, 3 Refills, Maintenance, 06/15/19 10:45:00 EDT, ER Tablet, [facility]/pharmacy #[id number], 165, cm, 05/25/19 9:28:00 EST, [...]
--- OUTSIDE RECORDS SUMMARY | 2022-08-11 12:07 | XMS_ITS | Continuity of Care Document ---
Author Name Unknown Organization [facility] Address [address] [place] [address]- Care Team Providers Care Underwriting Clerks Supervisor Name Role Phone Jonathan Lezama DO Primary Care Physician Encounter [facility] Date(s): 06/15/19 - 06/25/19 [facility] [address] [place] [address]- [facility] Attending Physician: Nolvia Rojas Admitting Physician: Nolvia [...] 05/25/19 9:52:00 EST, Route to Pharmacy Electronically, [facility]/pharmacy #[id number], 165, cm, 05/25/19 9:28:00EST, Height, 110.6, kg, 05/15/19 15:42:00 EST, Dry... Start Date: 05/25/19 Stop Date: 12/21/19 Status: Ordered calcitriol 0.5 mcg oral capsule 1 capsule = 0.5 mcg, By Mouth, 2 times a day, # 60 capsule, 1 Refills, Maintenance, 05/06/19 13:18:00 EST, Capsule, [facility], 165.1, cm, 05/06/19 11:49:00 EST, Height, 115.3, kg, 05/05/19 12:45:00 EST, Dry Weight Start Date: 05/06/19 Status: Ordered Caltrate 600 + D oral tablet 2 tablet, By Mouth, 3 times a day, # 180 tablet, 3 Refills, Maintenance, 05/10/19 15:56:00 EST, Tablet, [facility]/pharmacy #[id number], 2 tablet By Mouth 3 [...] Refills, Maintenance, 06/15/19 10:45:00 EDT, ER Tablet, [facility]/pharmacy #[id number], 165, cm, 05/25/19 9:28:00 EST, [...] 1 Refills, Maintenance, 06/15/19 10:47:00 EDT, Capsule, [facility]/pharmacy #[id number], 165, cm, 05/25/19 9:28:00 EST, [...]
--- OUTSIDE RECORDS SUMMARY | 2022-08-11 12:07 | XMS_ITS | Continuity of Care Document ---
Author Name Unknown Organization [facility] ter Address [address] [place] [address]- Care Team Providers Care Strap Machine Operator Automatic Name Role Phone Teja Jonathan MONTOYA Primary Care Physician [phone] Encounter [facility] Date(s): 04/26/19 - 04/26/[address] [address] Attending Physician: Jose SOLANO, Med Allergies, Adverse Reactions, Alerts Substance Reaction Severity Status Latex itchiness, redness Active Immunizations Given and Recorded Vaccine Date Status Refusal Reason influenza virus vaccine, inactivated 12/22/18 Give n Medications aspirin 81 mg oral delayed release tablet 81 mg, 1, tablet, By Mouth, Daily, # 90 tablet, Refills 2, Tot. Refills 2, Maintenance, 12/01/18 17:07:48 EDT, Route to Pharmacy Electronically, [id number], [id number] Start Date: 12/01/18 Status: Ordered [...] 0 Refills, Maintenance, 04/07/19 14:34:00 EST, Capsule, [facility]/pharmacy #[id number], 165, cm, 04/07/19 12:09:00 EST, Height, 111, kg, 04/03/19 1:32:00 EST, Dry Weight Start Date: 04/07/19 Status: Ordered ibuprofen 800 mg oral tablet 800 mg, 1, tablet, By Mouth, Every 8 hours, not to exceed 3200 mg/day with food or milk, # 40 tablet, Refills 0, Tot. Refills 0, Acute 05/09/19 14:34:00 EST, 04/07/19 14:34:00 EST, Route to Pharmacy Electronically, [facility]/pharmacy #[id number], 165, cm, ... Start Date: 04/07/19 [...] 14:35:00 EST, 04/07/19 14:34:00 EST, REC Powder, [facility]/pharmacy #2339, 17 Gm By Mouth Daily,Instr:dissolvein water [...] 04/07/19 14:34:00 EST, Route to Pharmacy Electronically, [facility]/pharmacy #[id number], 165, cm, 04/07/19 12:09:00 EST, Height, [...] 04/29/19 11:19:00 EST, 04/23/19 11:19:00 EST, Tablet, [facility]/pharmacy #[id number], 168, cm, 04/23/19 11:0... Start Date: [...]
--- OUTSIDE RECORDS SUMMARY | 2022-08-11 12:07 | XMS_ITS | Continuity of Care Document ---
Author Name Unknown Organization [facility] Address Unknown Care Team Providers Care Sand Mixer Operator Name Role Phone Jc SOLANO, Alba Chatterjee Primary Care Physician Encounter [facility] Date(s): 01/16/21 - 01/23/21 [facility] Attending Physician: Marie Belcher MD Referring Physician: Georges Rose Allergies, Adverse Reactions, Alerts Substance Reaction Severity [...] 10/22/20 13:47:00 EDT, Route to Pharmacy Electronically, [facility]/pharmacy #[id number], 165, cm, 10/02/20 15:12:00 EDT, Height, [...] 11 Refills, Maintenance, 10/02/20 6:52:00 EDT, Capsule, [facility]/pharmacy #[id number], 165, cm, 08/27/20 15:58:00 EDT, Height, [...] 2 Refills, Maintenance, 11/01/19 13:27:00 EDT, Tablet, [facility]/pharmacy #[id number], 165, cm, 10/30/19 13:34:00 EDT, [...] oldest [Reference Range]: 1 Height 165 cm (01/16/21 11:29 AM) Weight Obtained Via Standing scale (01/16/21 11:29 AM) Social History Social History Type Response Smoking Status Never (less than 100 in lifetime); Tobacco user in household: No entered on: 03/17/18 Sex
--- OUTSIDE RECORDS SUMMARY | 2022-08-11 12:07 | XMS_ITS | Continuity of Care Document ---
Author Name Unknown Organization [facility] ter Address [address] [place] [address]- Care Team Providers Care Glost Tile Shader Name Role Phone Alba Greene MD Primary Care Physician Encounter [facility] Date(s): 09/24/21 - 09/24/[address] [address]- Discharge Disposition: A-D/C Walkout Attending Physician: Not on Staff, Attending MD Admitting Physician: Not on Staff, Admitting MD Referring Physician: Not on Staff, Referring MD Allergies, Adverse Reactions, Alerts Substance Reaction [...] Height, 110.6... Start Date: 10/02/20 Status: Ordered Multivitamins with Folic Acid 0.8 mg oral tablet 1 tablet, By Mouth, Daily, # 180 tablet, 5 Refills, Maintenance, 09/12/18 13:44:10 EDT, Tablet Start Date: 09/12/18 Stop Date: 08/27/21 Status: Ordered Tylenol 325 mg oral capsule 2 capsule = 650 mg, By Mouth, Every 6 hours, PRN as needed for pain, # 240 capsule, 1 Refills, Maintenance, 06/15/19 10:47:00 EDT, Capsule, [facility]/pharmacy #[id number], 165, cm, 05/25/19 9:28:00 EST, [...] of June 2018 (intermittent will eat seafood). Results Radiology Reports * Exam Date Time Procedure Performing Provider Status 09/24/21 6:11 PM Chest 2 Views Frontal and Lat Ramila Cullen; Auth (Verified) Notes: (Chest 2 Views Frontal and Lat) Reason For Exam: Chest Pain;Other: RESULT: Chest 2 Views Frontal and Lat Chest 2 Views Frontal and Lat Hx of Present Illness: pt was at endocrinology appt noted to have high BP pt c o of headache and chest pain sent here for further evaluation pt denies any fever or chills. no n v d pt denies any light head or dizziness; Reason: Other:; Chest Pain; Clinical Question(s): Other: COMPARISON: 05/03/2019. FINDINGS: LINES AND TUBES: None. LUNGS AND PLEURA: Clear lungs. Normal pulmonary vascularity. No pleural effusion. No pneumothorax. HEART, MEDIASTINUM AND ALIYAH: Heart is normal in size. Normal upper mediastinal and hilar contour. BONES AND SOFT TISSUES: No acute abnormality. IMPRESSION: No acute abnormality. WSN: [id number] Ordering Physician: Smiley English Dictated By: Kenia Waddell MD Dictated Date/Time: 09/24/21 6:19 pm Reviewed By: Kenia Waddell MD Signed By: Kenia Waddell MD Signed Date/Time: 09/24/21 6:19 pm Transcribed By: YOSHI Transcribed Date/Time: 09/24/21 6:13 pm Vital Signs Most recent to oldest [Reference Range]: 1 2 Oxygen Saturation [94-100 %] 100 % (09/24/21 5:53 PM) 100 % (09/24/21 5:05 PM) Pulse Rate [55-90 bpm] 77 bpm (09/24/21 5:53 PM) 74 bpm (09/24/21 5:05 PM) Respiratory Rate [16-30 br/min] 18 br/mi n (09/24/21 5:53 PM) Temperature [96.8-100.4 DegF] 98.8 DegF (09/24/21 5:53 PM) Mode of Delivery (Oxygen) Room air (09/24/21 5:53 PM) Temperature Route Oral (09/24/21 5:53 PM) Social History Social History Type Response Smoking Status Never (less than 100 in lifetime); Tobacco user in household: No entered on: 03/17/18 Sex
--- OUTSIDE RECORDS SUMMARY | 2022-08-11 12:07 | XMS_ITS | Continuity of Care Document ---
Author Name Unknown Organization [employer] ter Address [address] [place] [address]- Care Team Providers Care Exchange Specialist Name Role Phone Teja Jonathan MONTOYA Primary Care Physician [phone] Encounter [facility] [place] Date(s): 04/02/19 - 04/07/[address] [address]- [facility] Discharge Disposition: A-D/C Home Attending Physician: Scooter SOLANO, Klevre Yan Admitting Physician: Nathaniel SOLANO, Sy Damon Referring Physician: Not on Staff, Referring MD [...] 12/01/18 17:07:48 EDT, Route to Pharmacy Electronically, [id number], [id number] Start Date: 12/01/18 Status: Ordered [...] 0 Refills, Maintenance, 04/07/19 14:34:00 EST, Capsule, [facility][id number], 165, cm, 04/07/19 12:09:00 EST, Height, 111, kg, 04/03/19 1:32:00 EST, Dry Weight Start Date: 04/07/19 Status: Ordered Fioricet oral capsule 1 capsule, By Mouth, Every 4 hours, PRN as needed, not to exceed 4000 mg acetaminophen per day, # 7capsule, 0 Refills, Acute 04/18/19 18:38:00 EST, 04/07/19 18:38:00 EST, Capsule, [facility][id number], 1 capsule By Mouth Every 4 hours,PRN:as needed,Ins... Start Date: 04/07/19 Stop Date: 04/18/19 Status: Ordered ibuprofen 800 mg oral tablet 800 mg, 1, tablet, By Mouth, Every 8 hours, not to exceed 3200 mg/day with food or milk, # 40 tablet, Refills 0, Tot. Refills 0, Acute 05/09/19 14:34:00 EST, 04/07/19 14:34:00 EST, Route to Pharmacy Electronically, [facility][id number], 165, cm, ... Start Date: 04/07/19 [...] 14:35:00 EST, 04/07/19 14:34:00 EST, REC Powder, [facility] #[id number], 17 Gm By Mouth Daily,Instr:dissolvein water before taking, 165, cm, 04/07/19 12:09:00... Start Date: 04/07/19 Stop Date: 05/09/19 Status: Ordered NIFEdipine 30 mg oral tablet, extended release 30 mg, 1, tablet, By Mouth, Every 12 hours, # 60 tablet, Refills 0, Tot. Refills 0, Maintenance, 04/07/19 14:34:00 EST, Route to Pharmacy Electronically, [facility] #[id number], 165, cm, 04/07/19 12:09:00 EST, Height, 111, kg, 04/03/19 1:32:00 EST, Dry We... Start Date: 04/07/19 Status: Ordered oxyCODONE 5 mg oral tablet 5 mg, 1, tablet, By Mouth, Every 6 hours, PRN, # 20 tablet, Refills 0, Tot. Refills 0, Acute 04/21/19 14:35:00 EST, Pain , Severe, 04/07/19 14:34:00 EST, [id number] fill upon patient request, 165, cm,... Start Date: 04/07/19 Stop Date: 04/21/19 Status: Ordered Multivitamins with Folic Acid 0.8 [...] 04/07/19 14:34:00 EST, Route to Pharmacy Electronically, [facility][id number], 165, cm, 04/07/19 12:09:00 EST, Height, 111, kg, 04/03/19 1:32:00 E... Start Date: 04/07/19 Stop Date: 05/09/19 Status: Ordered Problem List Condition Effective Dates Status Health Status Inform ant Anemia affecting , antepartum(Confirmed) Active Asthma(Confirmed) 1 Active Varicella exposure(Confirmed) 2 Active Medullary thyroid carcinoma(Confirmed) Active Migraine without [...] Advised Jennifer she is in control and [facility] respects her boundaries and needs. 8+ 9was vegetarian for 7.5yrs but became vegan as of June 2018 (intermittent will eat seafood). Procedures Procedure Date Related Diagnosis Body Site Status delivery only; 04/03/19 C ompleted Results Radiology Reports * Exam Date Time Procedure Performing Provider Status 04/03/19 4:02 AM Chest Portable Ramsey Trinidad; Auth (Verified) Notes: (Chest Portable) Reason For Exam: Chest Pain;Other: RESULT: Chest Portable Chest Portable INDICATION: Preeclampsia with severe features with shortness of breath and chest pains. COMPARISON: None. FINDINGS: LINES AND TUBES: None. LUNGS AND PLEURA: Clear lungs. Normal pulmonary vascularity. No pleural effusion. No pneumothorax. HEART, MEDIASTINUM AND ALIYAH: Heart is normal in size. Normal mediastinal and hilar contour. BONES AND SOFT TISSUES: No acute abnormality. IMPRESSION: No acute abnormality. I have personally reviewed the images and I agree with this report. WSN: [id number] Dictated By: Tomasz Pennington MD Dictated Date/Time: 04/03/19 9:42 am Reviewed By: Haider Melchor MD Signed By: Haider Melchor MD Signed Date/Time: 04/03/19 9:47 am Transcribed By: YOSHI Transcribed Date/Time: 04/03/19 7:35 am Vital Signs Most recent to oldest [Reference Range]: 1 2 3 Height 165 cm (04/07/19 4:11 PM) 165 cm (04/07/19 11:30 AM) 165 cm (04/07/19 8:20 AM) Weight 111 kg (04/03/19 1:22 AM) Oxygen Saturation [94-100 %] 100 % (04/07/19 4:11 PM) 100 % (04/07/19 11:30 AM) 98 % (04/07/19 6:52 AM) Pulse Rate [55-90 bpm] 98 bpm *H* (04/07/19 4:11 PM) 91 bpm *H* (04/07/19 11:30 AM) 103 bpm *H* (04/07/19 8:20 AM) Body Mass Index [18.5-24.99] 40.77 *>HHI* (04/03/19 1:22 AM) Blood Pressure [90-138/55-84 mm Hg] 137/78mm Hg (04/07/19 4:11 PM) 137/0mm Hg (04/07/19 11:30 AM) 140/88mm Hg *H* (04/07/19 9:44 AM) Respiratory Rate [16-30 br/min] 18 br/min (04/07/19 4:20 PM) 20 br/min (04/07/19 4:11 PM) 18 br/min (04/07/19 2:30 PM) Temperature [96.8-100.4 DegF] 98.5 DegF (04/07/19 4:11 PM) 98.5 DegF (04/07/19 11:30 AM) 98.4 DegF (04/07/19 8:20 AM) Mode of Delivery (Oxygen) Room air (04/07/19 6:52 AM) Room air (04/06/19 9:35 PM) Room air (04/06/19 5:54 PM) Blood pressure sites Arm, right (04/07/19 6:52 AM) Arm, right (04/07/19 2:54 AM) Arm, left (04/06/19 9:35 PM) Temperature Route Oral (04/07/19 4:11 PM) Oral (04/07/19 11:30 AM) Axillary (04/07/19 8:20 AM) Dry Weight 111 kg (04/03/19 1:22 AM) Sensory deficits None (04/03/19 1:22 AM) Mobility assistance Independent (04/03/19 1:22 AM) Social History Social History Type Response Smoking Status Never (less than 100 in lifetime); Tobacco user in household: No entered on: 03/17/18 Sex
--- OUTSIDE RECORDS SUMMARY | 2022-08-11 12:07 | XMS_ITS | Continuity of Care Document ---
Author Name Unknown Organization [facility] ter Address [address] [place] [address]- Care Team Providers Care Electron Microscopist Name Role Phone Jonathan Lezama DO Primary Care Physician En[place] [facility] [place] [facility] [place] Date(s): 05/03/19 - 05/06/[address] [address]- [facility] Encounter Diagnosis Hypocalcemia(Final) - 05/03/19 Hypokalemia(Final) - 05/03/19 Long QT interval(Final) - 05/03/19 Discharge Disposition: A-D/C Home Attending Physician: Jyotsna aVrgas MD Admitting Physician: Swanpa Cabrera DO Referring Physician: Not on Staff, Referring MD Allergies, Adverse Reactions, Alerts Substance Reaction Severity Status Latex itchiness, redness Active Immunizations Given and Recorded Vaccine Date Status Refusal Reason influenza virus vaccine, inactivated 12/22/18 Give n Not Given Vaccine Date Status Refusal Reason pneumococcal 23-valent vaccine 05/04/19 Not Given Parent Or Guardian Refuses Medications calcitriol 0.5 mcg oral capsule 1 capsule = 0.5 mcg, By Mouth, 2 times a day, # 60 capsule, 1 Refills, Maintenance, 05/06/19 13:18:00 EST, Capsule, [facility], 165.1, cm, 05/06/19 11:49:00 EST, Height, 115.3, kg, 05/05/19 12:45:00 EST, Dry Weight Start Date: 05/06/19 Status: Ordered calcium (as citrate)-vitamin D 315 mg-250 intl units oral tablet 3 tablet, By Mouth, 3 times a day, # 120 tablet, 1 Refills, Maintenance, 05/06/19 13:20:00 EST, [facility], 3 tablet By Mouth 3 times a day, 165.1, cm, 05/06/19 11:49:00 EST, Height, 115.3, kg, 05/05/19 12:45:00 EST, Dry Weight Start Date: 05/06/19 Status: Ordered diclofenac 1% topical gel 1 application, Topically, 4 times a day, # 100 Gm, 0 Refills, Maintenance, 05/06/19 13:28:00 EST, Gel, [facility], 165.1, cm, 05/06/19 11:49:00 EST, Height, 115.3, kg, 05/05/19 12:45:00EST, Dry Weight Start Date: 05/06/19 Status: Ordered ibuprofen 800 mg oral tablet 800 mg, 1, tablet, By Mouth, Every 8 hours, not to exceed 3200 mg/day with food or milk, # 40 tablet, Refills 0, Tot. Refills 0, Maintenance, 05/06/19 13:22:00 EST, Route to Pharmacy Electronically, [facility], 165.1, cm, 05/06/19 11:49... Start Date: 05/06/19 Status: Ordered levothyroxine 0.2 mg oral tablet 1 tablet = 200 mcg, By Mouth, Daily, # 90 tablet, 3 Refills, Maintenance, 03/02/19 9:52:58 EST, Tablet, 171, cm, 03/02/19 8:47:24 EST, Height, 111.6, kg, 12/29/18 8:33:45 EDT, Dry Weight Start Date: 03/02/19 Status: Ordered Multivitamins with Folic Acid 0.8 mg oral tablet 1 tablet, By Mouth, Daily, # 180 tablet, 5 Refills, Maintenance, 09/12/18 13:44:10 EDT, Tablet Start Date: 09/12/18 Stop Date: 08/27/21 Status: Ordered Tylenol 325 mg oral tablet 650 mg, 2, tablet, By Mouth, Every 6 hours, PRN, # 50 tablet, Refills 0, Tot. Refills 0, Maintenance, Pain , Mild Pain , Moderate Temperature, 05/06/19 13:21:00 EST, Route to Pharmacy Electronically, [facility], 165.1, cm, 05/06/19 1... Start Date: 05/06/19 Status: Ordered Problem List Condition Effective Dates [...] Advised Jennifer she is in control and [facility] respects her boundaries and needs. 8+ 9was vegetarian for 7.5yrs but became vegan as of June 2018 (intermittent will eat seafood). Results Radiology Reports * Exam Date Time Procedure Performing Provider Status 05/03/19 10:42 AM Chest 2 Views Frontal and Lat Deonna Mcgarry; Auth (Verified) Notes: (Chest 2 Views Frontal and Lat) Reason For Exam: Shortness of Breath RESULT: Chest 2 Views Frontal and Lat Chest 2 Views Frontal and Lat INDICATION: Shortness of Breath; Clinical Question(s): Pleural Effusion; Hx of Present Illness: Abnormal ECG COMPARISON: 04/03/2019, CT angiogram from 04/11/2019 FINDINGS: LINES AND TUBES: None. LUNGS AND PLEURA: The lung volumes are low however the lungs are grossly clear. No pleural effusion. No pneumothorax. HEART, MEDIASTINUM AND ALIYAH: Heart is normal in size. Normal mediastinal and hilar contour. BONES AND SOFT TISSUES: No acute abnormality. IMPRESSION: No evidence of acute abnormality. WSN: [id number] Dictated By: David Ortega MD Dictated Date/Time: 05/03/19 10:46 a Reviewed By: David Ortega MD Signed By: David Ortega MD Signed Date/Time: 05/03/19 10:46 am Transcribed By: YOSHI Transcribed Date/Time: 05/03/19 10:45 am Vital Signs Most recent to oldest [Reference Range]: 1 2 3 Height 165.10 cm (05/06/19 11:44 AM) 165.10 cm (05/06/19 5:37 AM) 165.10 cm (05/06/19 12:08 AM) Weight 110.9 kg (05/05/19 5:28 AM) 115.3 kg (05/03/19 8:54 PM) Oxygen Saturation [94-100 %] 97 % (05/06/19 11:44 AM) 100 % (05/06/19 5:37 AM) 100 % (05/06/19 12:08 AM) Pulse Rate [55-90 bpm] 87 bpm (05/06/19 11:44 AM) 85 bpm (05/06/19 5:37 AM) 83 bpm (05/06/19 12:08 AM) Body Mass Index [18.5-24.99] 40.69 *>HHI* (05/05/19 5:28 AM) 42.3 *>HHI* (05/03/19 8:54 PM) Blood Pressure [90-138/55-84 mm Hg] 129/82mm Hg (05/06/19 11:44 AM) 140/85mm Hg *H* (05/06/19 5:37 AM) 141/93mm Hg *H* (05/06/19 12:08 AM) Respiratory Rate [16-30 br/min] 18 br/min (05/06/19 11:44 AM) 18 br/min (05/06/19 5:37 AM) 19 br/min (05/06/19 12:08 AM) Temperature [96.8-100.4 DegF] 98.5 DegF (05/06/19 11:44 AM) 97.6 DegF (05/06/19 5:37 AM) 97.6 DegF (05/06/19 12:08 AM) Mode of Delivery (Oxygen) Room air (05/06/19 11:44 AM) Room air (05/06/19 5:37 AM) Room air (05/06/19 12:08 AM) Blood pressure sites Arm, left (05/06/19 11:44 AM) Arm, right (05/06/19 5:37 AM) Arm, left (05/06/19 12:08 AM) Temperature Route Oral (05/06/19 11:44 AM) Oral (05/06/19 5:37 AM) Oral (05/06/19 12:08 AM) Dry Weight 115.3 kg (05/03/19 8:54 PM) Sensory deficits None (05/03/19 8:54 PM) Mobility assistance Independent (05/03/19 8:54 PM) Social History Social History Type Response Smoking Status Never (less than 100 in lifetime); Tobacco user in household: No entered on: 03/17/18 Sex
--- OUTSIDE RECORDS SUMMARY | 2022-08-11 12:07 | XMS_ITS | Continuity of Care Document ---
Author Name Unknown Organization [facility] Address [address] [place] [phone]- Care Team Providers Care Career Coach Name Role Phone Jonathan Lezama DO Primary Care Physician Encounter [facility] Date(s): 04/13/19 - 05/17/19 [facility] [address] [place] [address]- [facility] Attending Physician: Merna Hong MD Admitting Physician: Merna Hong MD Referring Physician: Tania Anthony MD Allergies, Adverse Reactions, Alerts Substance Reaction [...] 1 Refills, Maintenance, 05/06/19 13:18:00 EST, Capsule, [facility], 165.1, cm, 05/06/19 11:49:00 EST, Height, 115.3, kg, 05/05/19 12:45:00 EST, Dry Weight Start Date: 05/06/19 Status: Ordered calcium (as citrate)-vitamin D 315 mg-250 intl units oral tablet 3 tablet, By Mouth, 3 times a day, # 120 tablet, 1 Refills, Maintenance, 05/06/19 13:20:00 EST, [facility], 3 tablet By Mouth 3 times a day, 165.1, cm, 05/06/19 11:49:00 EST, Height, 115.3, kg, 05/05/19 12:45:00 EST, Dry Weight Start Date: 05/06/19 Status: Ordered Caltrate 600 + D oral tablet 2 tablet, By Mouth, 3 times a day, # 180 tablet, 3 Refills, Maintenance, 05/10/19 15:56:00 EST, Tablet, [facility] #[id number], 2 tablet By Mouth 3 times a day,x30 days, 165.1, cm, 05/10/19 15:28:00 EST,Height, 115.3, kg, 05/05/19 12:45:00 EST, Dry Weight Start Date: 05/10/19 Stop Date: 09/07/19 Status: Ordered diclofenac 1% topical gel 1 application, Topically, 4 times a day, # 100 Gm, 0 Refills, Maintenance, 05/06/19 13:28:00 EST, Gel, [facility], 165.1, cm, 05/06/19 11:49:00 EST, Height, 115.3, kg, 05/05/19 12:45:00EST, Dry Weight Start Date: 05/06/19 Status: Ordered ibuprofen 800 mg oral tablet 800 mg, 1, tablet, By Mouth, Every 8 hours, not to exceed 3200 mg/day with food or milk, # 40 tablet, Refills 0, Tot. Refills 0, Maintenance, 05/06/19 13:22:00 EST, Route to Pharmacy Electronically, [facility], 165.1, cm, 05/06/19 11:49... Start Date: [...] 05/06/19 13:21:00 EST, Route to Pharmacy Electronically, [facility], 165.1, cm, 05/06/19 1... Start [...]
--- OUTSIDE RECORDS SUMMARY | 2022-08-11 12:07 | XMS_ITS | Continuity of Care Document ---
Author Name Unknown Organization [facility] Address [address] [place] [address] [address] [place] [address]- Care Team Providers Care English Tutor Name Role Phone Isela SOLANO, Jasmin Tellez Primary Care Physician Encounter [facility] [place] Date(s): 03/17/20 - 04/16/[address] [place] [address]- Allergies, Adverse Reactions, Alerts Substance Reaction Severity [...] 01/21/20 11:44:00 EST, Route to Pharmacy Electronically, [facility] #[id number], 165, cm, 11/30/19 13:28:00 EDT, Height, 110.6, kg, 05/15/19 15:42:00 EST, . Start Date: 01/21/20 Stop Date: 08/18/20 Status: Ordered calcitriol 0.5 mcg oral capsule 1 capsule = 0.5 mcg, By Mouth, 2 times a day, # 60 capsule, 5 Refills, Maintenance, 03/17/20 11:38:00 EST, Capsule, [facility] #[id number], 165, cm, 11/30/19 13:28:00 EDT, Height, 110.6, kg, 05/15/19 15:42:00 EST, Dry Weight Start Date: 03/17/20 Status: Ordered Caltrate 600 + D oral tablet 2 tablet, By Mouth, 3 times a day, # 180 tablet, 3 Refills, Maintenance, 05/10/19 15:56:00 EST, Tablet, [id number], 2 tablet By Mouth 3 times a day,x30 days, 165.1, cm, 05/10/19 15:28:00 EST,Height, 115.3, kg, 05/05/19 12:45:00 EST, Dry Weight Start Date: 05/10/19 Stop Date: 09/07/19 Status: Ordered labetalol 100 mg oral tablet 1 tablet = 100 mg, By Mouth, 2 times a day, # 60 tablet, 2 Refills, Maintenance, 11/01/19 13:27:00 EDT, Tablet, [id number], 165, cm, 10/30/19 13:34:00 EDT, Height, 110.6, kg, 05/15/19 15:42:00 EST, Dry Weight Start Date: 11/01/19 Status: Ordered levothyroxine 150 mcg (0.15 mg) oral tablet 1 tablet = 150 mcg, By Mouth, Daily, # 30 tablet, 1 Refills, Maintenance, 02/29/20 9:02:00 EST, [id number], Partial fill upon patient request if the prescription is for a schedule II opioid drug., 165, cm, 11/30/19 13:28:00 EDT, Height, 110.6,... Start Date: 02/29/20 Status: Ordered potassium chloride 10 mEq oral tablet, extended release 2 tablet = 20 mEq, By Mouth, Daily, # 10 tablet, 3 Refills, Maintenance, 06/15/19 10:45:00 EDT, ER Tablet, [id number], 165, cm, 05/25/19 9:28:00 EST, Height, [...] and now w/ resolve of sx's. JSt saanz'd MFM consult. pt to sched after OBI. [...]
--- OUTSIDE RECORDS SUMMARY | 2022-08-11 12:08 | XMS_ITS | Continuity of Care Document ---
Author Name Unknown Organization [facility] Address [address] [place] [address]- Care Team Providers Care Roving Department Supervisor Name Role Phone Jc SOLANO, Abla Chatterjee Primary Care Physician Encounter [facility] [place] Date(s): 09/28/21 - 11/06/21 [facility] [address] [place] [address]- Attending Physician: Vick Negro MD Admitting Physician: Vick Negro MD Allergies, Adverse Reactions, Alerts Substance Reaction [...] 10/26/21 12:00:00 EDT, Route to Pharmacy Electronically, [facility]acy #[id number], 168, cm, 09/24/21 23:34:00 EDT, Height, [...]
--- OUTSIDE RECORDS SUMMARY | 2022-08-11 12:08 | XMS_ITS | Continuity of Care Document ---
Author Name Unknown Organization [facility] Address [address] [place] [address]- Care Team Providers Care Farm Supervisor Name Role Phone Alba Greene MD Primary Care Physician En[place] [facility] [place] Date(s): 10/10/20 - 11/09/20 [facility] [address] [place] [id number] Allergies, Adverse Reactions, Alerts Substance [...] 10/22/20 13:47:00 EDT, Route to Pharmacy Electronically, [id number], 165, cm, 10/02/20 15:12:00 EDT, [...] 11 Refills, Maintenance, 10/02/20 6:52:00 EDT, Capsule, [facility] #[id number], 165, cm, 08/27/20 15:58:00 EDT, [...]
--- OUTSIDE RECORDS SUMMARY | 2022-08-11 12:08 | XMS_ITS | Continuity of Care Document ---
Author Name Unknown Organization [facility] ter Address [address] [place] [address]- Care Team Providers Care Progressive Care Nurse Name Role Phone Teja Jonathan MONTOYA Primary Care Physician [place] [facility] [place] 04/26/19 - 04/26/[address] [address]- [facility] Attending Physician: Calos SOLANO, Ivelisse Allergies, Adverse Reactions, Alerts Substance Reaction Severity Status Latex itchiness, redness Active Immunizations Given and Recorded Vaccine Date Status Refusal Reason influenza virus vaccine, inactivated 12/22/18 Give n Medications aspirin 81 mg oral delayed release tablet 81 mg, 1, tablet, By Mouth, Daily, # 90 tablet, Refills 2, Tot. Refills 2, Maintenance, 12/01/18 17:07:48 EDT, Route to Pharmacy Electronically, [id number], [id number] Start Date: 12/01/18 Status: Ordered [...] 04/29/19 11:19:00 EST, 04/23/19 11:19:00 EST, Tablet, [id number], 168, cm, 04/23/19 11:0... Start [...]
--- OUTSIDE RECORDS SUMMARY | 2022-08-11 12:08 | XMS_ITS | Continuity of Care Document ---
Author Name Unknown Organization [facility] Address Unknown Care Team Providers Care Electric Well Logging Operator Name Role Phone Jc SOLANO, Alba Chatterjee Primary Care Physician ( [phone] Encounter [facility] [place] Date(s): 01/16/21 - 02/15/21 [facility] Attending Physician: AdmNolvia brooks Admitting Physician: AdmtrNolvia Referring Physician: Admtr, Ar8 [...] 01/30/21 17:51:00 EST, Route to Pharmacy Electronically, [id number], 165, cm, 01/16/21 11:29:00 EDT, Height, [...] 11 Refills, Maintenance, 10/02/20 6:52:00 EDT, Capsule, [facility] #[id number], 165, cm, 08/27/20 15:58:00 EDT, Height, [...]
--- OUTSIDE RECORDS SUMMARY | 2022-08-11 12:08 | XMS_ITS | Continuity of Care Document ---
Author Name Unknown Organization [facility] Address [address] [facility], [address] Floor, [address] [place] [address]- Care Team Providers Care Executive Director Name Role Phone Jonathan Lezama DO Primary Care Physician Encounter [facility] [place] Date(s): 05/17/19 - 06/20/19 [facility] [address] [facility], [address]rd Floor, [address] [place] [address]- [facility] Attending Physician: Jd Sandoval NP Admitting Physician: Jd Sandoval NP Referring Physician: Tirso Meehan Allergies, Adverse Reactions, [...] 05/25/19 9:52:00 EST, Route to Pharmacy Electronically, [id number], 165, cm, 05/25/19 9:28:00EST, Height, 110.6, kg, 05/15/19 15:42:00 EST, Dry... Start Date: 05/25/19 Stop Date: 12/21/19 Status: Ordered calcitriol 0.5 mcg oral capsule 1 capsule = 0.5 mcg, By Mouth, 2 times a day, # 60 capsule, 1 Refills, Maintenance, 05/06/19 13:18:00 EST, Capsule, [facility], 165.1, cm, 05/06/19 11:49:00 EST, Height, 115.3, kg, 05/05/19 12:45:00 EST, Dry Weight Start Date: 05/06/19 Status: Ordered Caltrate 600 + D oral tablet 2 tablet, By Mouth, 3 times a day, # 180 tablet, 3 Refills, Maintenance, 05/10/19 15:56:00 EST, Tablet, [id number], 2 tablet By [...] Refills, Maintenance, 06/15/19 10:45:00 EDT, ER Tablet, [id number], 165, cm, 05/25/19 [...] 1 Refills, Maintenance, 06/15/19 10:47:00 EDT, Capsule, [id number], 165, cm, 05/25/19 [...]
--- OUTSIDE RECORDS SUMMARY | 2022-08-11 12:08 | XMS_ITS | Continuity of Care Document ---
Author Name Unknown Organization [facility] Address [address] [place] [address]- Care Team Providers Care It Program Engagement Director Name Role Phone Jc SOLANO, Alba Chatterjee Primary Care Physician [place] [facility] [place] - 10/30/21 [facility] [address] [place] [address]- [place] Allergies, Adverse Reactions, Alerts Substance Reaction Severity [...] 10/26/21 12:00:00 EDT, Route to Pharmacy Electronically, [id number], 168, cm, 09/24/21 23:34:00 EDT, Height, [...]
--- OUTSIDE RECORDS SUMMARY | 2022-08-11 12:08 | XMS_ITS | Continuity of Care Document ---
Author Name Unknown Organization [facility] Address [address] [place] [address]- Care Team Providers Care Secretary Specialist Name Role Phone Alba Greene MD Primary Care Physician Encounter [facility] Date(s): 11/01/20 - 03/01/21 [facility] [address] [place] [id number] Attending Physician: Mayda Lyons DO Admitting Physician: Mayda Lyons DO Referring Physician: Isela SOLANO, Jasmin Tellez Allergies, Adverse Reactions, Alerts Substance Reaction Severity [...] 01/30/21 17:51:00 EST, Route to Pharmacy Electronically, [facility]/pharmacy #[id number], 165, cm, 01/16/21 11:29:00 EDT, [...] 11 Refills, Maintenance, 10/02/20 6:52:00 EDT, Capsule, [facility]/pharmacy #[id number], 165, cm, 08/27/20 15:58:00 EDT, Height, 110.6, kg, 05/15/19 15:42:00 EST, Dry Weight Start Date: 10/02/20 Status: Ordered Caltrate 600 + D oral tablet 2 tablet, By Mouth, 2 times a day, # 120 tablet, 11 Refills, Maintenance, 11/28/20 15:35:00 EDT, Tablet, [facility]/pharmacy #[id number], 2 tablet By Mouth 2 times a day,x30 days, 165, cm, 10/02/20 15:12:00 EDT, Height, 110.6, kg, 05/15/19 15:42:00 EST, Dry Weight Start Date: 11/28/20 Stop Date: 11/23/21 Status: Ordered labetalol 100 mg oral tablet 1 tablet = 100 mg, By Mouth, 2 times a day, # 60 tablet, 2 Refills, Maintenance, 11/01/19 13:27:00 EDT, Tablet, [facility]/pharmacy #[id number], 165, cm, 10/30/19 13:34:00 EDT, Height, 110.6, kg, 05/15/19 15:42:00 EST, Dry Weight Start Date: 11/01/19 Status: Ordered levothyroxine 150 mcg (0.15 mg) oral tablet 1 tablet = 150 mcg, By Mouth, Daily, # 30 tablet, 11 Refills, Maintenance, 10/02/20 6:52:00 EDT, [facility]/pharmacy #[id number], Partial fill upon patient request [...]
--- OUTSIDE RECORDS SUMMARY | 2022-08-11 12:08 | XMS_ITS | Continuity of Care Document ---
Author Name Unknown Organization [facility] Address [address] [facility], [address] d Floor, [address] [place] [id number]- Care Team Providers Care Property Claims Adjuster Name Role Phone Alba Greene MD Primary Care Physician Encounter [facility] [place] Date(s): 10/02/20 - 11/01/20 [facility] [address], [address] Floor, [address] [place] [address]- Attending Physician: Nolvia Rojas Admitting Physician: Nolvia [...] 10/22/20 13:47:00 EDT, Route to Pharmacy Electronically, [facility]/pharmacy #[id number], 165, cm, 10/02/20 15:12:00 EDT, [...] 11 Refills, Maintenance, 10/02/20 6:52:00 EDT, Capsule, [facility]/pharmacy #[id number], 165, cm, 08/27/20 15:58:00 EDT, Height, 110.6, kg, 05/15/19 15:42:00 EST, Dry Weight Start Date: 10/02/20 Status: Ordered Caltrate 600 + D oral tablet 2 tablet, By Mouth, 3 times a day, # 180 tablet, 3 Refills, Maintenance, 05/10/19 15:56:00 EST, Tablet, [facility]/pharmacy #[id number], 2 tablet By Mouth 3 times a day,x30 days, 165.1, cm, 05/10/19 15:28:00 EST,Height, 115.3, kg, 05/05/19 12:45:00 EST, Dry Weight Start Date: 05/10/19 Stop Date: 09/07/19 Status: Ordered labetalol 100 mg oral tablet 1 tablet = 100 mg, By Mouth, 2 times a day, # 60 tablet, 2 Refills, Maintenance, 11/01/19 13:27:00 EDT, Tablet, [facility]/pharmacy #[id number], 165, cm, 10/30/19 13:34:00 EDT, Height, 110.6, kg, 05/15/19 15:42:00 EST, Dry Weight Start Date: 11/01/19 Status: Ordered levothyroxine 150 mcg (0.15 mg) oral tablet 1 tablet = 150 mcg, By Mouth, Daily, # 30 tablet, 11 Refills, Maintenance, 10/02/20 6:52:00 EDT, [facility]/pharmacy #[id number], Partial fill upon patient request [...]
--- OUTSIDE RECORDS SUMMARY | 2022-08-11 12:08 | XMS_ITS | Continuity of Care Document ---
Author Name Unknown Organization [facility] Address [address] [place] [address]- Care Team Providers Care Dope Dry House Operator Name Role Phone Isela SOLANO, Jasmin Tellez Primary Care Physician Encounter [facility] Date(s): 10/18/19 - 11/17/19 [facility] [address] [place] [phone]- [facility] Allergies, Adverse Reactions, Alerts Substance Reaction Severity [...] 05/25/19 9:52:00 EST, Route to Pharmacy Electronically, [facility]/pharmacy #[id number], 165, cm, 05/25/19 9:28:00EST, Height, 110.6, kg, 05/15/19 15:42:00 EST, Dry... Start Date: 05/25/19 Stop Date: 12/21/19 Status: Ordered calcitriol 0.5 mcg oral capsule 1 capsule = 0.5 mcg, By Mouth, 2 times a day, # 60 capsule, 5 Refills, Maintenance, 09/03/19 8:18:00 EDT, Capsule, [facility]/pharmacy #[id number], 165, cm, 05/25/19 9:28:00 EST, Height, 110.6, kg, 05/15/19 15:42:00 EST, Dry Weight Start Date: 09/03/19 Status: Ordered Caltrate 600 + D oral tablet 2 tablet, By Mouth, 3 times a day, # 180 tablet, 3 Refills, Maintenance, 05/10/19 15:56:00 EST, Tablet, [facility]/pharmacy #[id number], 2 tablet By Mouth 3 times a day,x30 days, 165.1, cm, 05/10/19 15:28:00 EST,Height, 115.3, kg, 05/05/19 12:45:00 EST, Dry Weight Start Date: 05/10/19 Stop Date: 09/07/19 Status: Ordered labetalol 100 mg oral tablet 1 tablet = 100 mg, By Mouth, 2 times a day, # 60 tablet, 2 Refills, Maintenance, 11/01/19 13:27:00 EDT, Tablet, [facility]/pharmacy #[id number], 165, cm, 10/30/19 [...] 0 Refills, Maintenance, 10/31/19 21:10:00 EDT, Tablet, [facility]/pharmacy #[id number], 165, cm, 10/30/19 13:34:00 EDT, Height, 110.6, kg, 05/15/19 15:42:00 EST, Dry Weight Start Date: 10/31/19 Status: Ordered potassium chloride 10 mEq oral tablet, extended release 2 tablet = 20 mEq, By Mouth, Daily, # 10 tablet, 3 Refills, Maintenance, 06/15/19 10:45:00 EDT, ER Tablet, [facility]/pharmacy #[id number], 165, cm, 05/25/19 [...]
--- OUTSIDE RECORDS SUMMARY | 2022-08-11 12:08 | XMS_ITS | Continuity of Care Document ---
Author Name Unknown Organization [facility] Address [address] [facility], 3r d Floor, [address] [place] [address]- Care Team Providers Care Education Officer Name Role Phone Isela SOLANO, Jasmin Tellez Primary Care Physician Encounter [facility] [place] Date(s): 01/23/20 - 05/11/20 [facility] [address], 3[address], [address] [place] [address]- Attending Physician: Neris Nazario MD Admitting Physician: [...] 01/21/20 11:44:00 EST, Route to Pharmacy Electronically, [facility]/pharmacy #[id number], 165, cm, 11/30/19 13:28:00 EDT, Height, [...] 3 Refills, Maintenance, 05/10/19 15:56:00 EST, Tablet, [facility]/pharmacy #[id number], 2 tablet By Mouth 3 times a day,x30 days, 165.1, cm, 05/10/19 15:28:00 EST,Height, 115.3, kg, 05/05/19 12:45:00 EST, Dry Weight Start Date: 05/10/19 Stop Date: 09/07/19 Status: Ordered labetalol 100 mg oral tablet 1 tablet = 100 mg, By Mouth, 2 times a day, # 60 tablet, 2 Refills, Maintenance, 11/01/19 13:27:00 EDT, Tablet, [facility]/pharmacy #[id number], 165, cm, 10/30/19 13:34:00 EDT, Height, 110.6, kg, 05/15/19 15:42:00 EST, Dry Weight Start Date: 11/01/19 Status: Ordered levothyroxine 150 mcg (0.15 mg) oral tablet 1 tablet = 150 mcg, By Mouth, Daily, # 30 tablet, 1 Refills, Maintenance, 02/29/20 9:02:00 EST, [facility]/pharmacy #[id number], Partial fill upon patient request if the prescription is for a schedule II opioid drug., 165, cm, 11/30/19 13:28:00 EDT, Height, 110.6,... Start Date: 02/29/20 Status: Ordered potassium chloride 10 mEq oral tablet, extended release 2 tablet = 20 mEq, By Mouth, Daily, # 10 tablet, 3 Refills, Maintenance, 06/15/19 10:45:00 EDT, ER Tablet, [facility]/pharmacy #[id number], 165, cm, 05/25/19 9:28:00 [...]
--- OUTSIDE RECORDS SUMMARY | 2022-08-11 12:08 | XMS_ITS | Continuity of Care Document ---
Author Name Unknown Organization [facility] Address [address] [place] [address]- Care Team Providers Care Architect In Training Name Role Phone Isela SOLANO, Jasmin Tellez Primary Care Physician Encounter [facility] [place] Date(s): 07/29/20 - 08/28/20 [facility] [address] [place] [address]- Allergies, Adverse Reactions, Alerts Substance Reaction Severity [...] Pharmacy Electroni... Start Date: 06/26/20 Status: Ordered BP cuff and monitor BP [...] 3 Refills, Maintenance, 05/10/19 15:56:00 EST, Tablet, [facility]/pharmacy #[id number], 2 tablet By Mouth 3 times a day,x30 days, 165.1, cm, 05/10/19 15:28:00 EST,Height, 115.3, kg, 05/05/19 12:45:00 EST, Dry Weight Start Date: 05/10/19 Stop Date: 09/07/19 Status: Ordered labetalol 100 mg oral tablet 1 tablet = 100 mg, By Mouth, 2 times a day, # 60 tablet, 2 Refills, Maintenance, 11/01/19 13:27:00 EDT, Tablet, [facility]/pharmacy #[id number], 165, cm, 10/30/19 13:34:00 EDT, Height, 110.6, kg, 05/15/19 15:42:00 EST, Dry Weight Start Date: 11/01/19 Status: Ordered levothyroxine 150 mcg (0.15 mg) oral tablet 1 tablet = 150 mcg, By Mouth, Daily, # 30 tablet, 2 Refills, Maintenance, 06/23/20 10:26:00 EDT, [facility]/pharmacy #[id number], Partial fill upon patient request if the prescription is for a schedule II opioid drug., 165, cm, 11/30/19 13:28:00 EDT, Height, 110.6... Start Date: 06/23/20 Status: Ordered potassium chloride 10 mEq oral tablet, extended release 2 tablet = 20 mEq, By Mouth, Daily, # 10 tablet, 3 Refills, Maintenance, 06/15/19 10:45:00 EDT, ER Tablet, [facility]/pharmacy #[id number], 165, cm, 05/25/19 9:28:00 EST, Height, [...]
--- OUTSIDE RECORDS SUMMARY | 2022-08-11 12:08 | XMS_ITS | Continuity of Care Document ---
Author Name Unknown Organization [facility] Address [address] [place] [address]- Care Team Providers Care Garnishment Specialist Name Role Phone Teja Jonathan MONTOYA Primary Care Physician Encounter [facility] [place] Date(s): 06/15/19 - 06/22/19 [facility] [address] [place] [address]- [facility] Attending Physician: Mehdi SOLANO, Aki Ruggiero Admitting Physician: Sruthi SOLANO, Vick Tellez Allergies, Adverse Reactions, Alerts Substance Reaction [...] 05/25/19 9:52:00 EST, Route to Pharmacy Electronically, [facility]/pharmacy #[id number], 165, cm, 05/25/19 9:28:00EST, Height, 110.6, kg, 05/15/19 15:42:00 EST, Dry... Start Date: 05/25/19 Stop Date: 12/21/19 Status: Ordered calcitriol 0.5 mcg oral capsule 1 capsule = 0.5 mcg, By Mouth, 2 times a day, # 60 capsule, 1 Refills, Maintenance, 05/06/19 13:18:00 EST, Capsule, [facility], 165.1, cm, 05/06/19 11:49:00 EST, Height, 115.3, kg, 05/05/19 12:45:00 EST, Dry Weight Start Date: 05/06/19 Status: Ordered Caltrate 600 + D oral tablet 2 tablet, By Mouth, 3 times a day, # 180 tablet, 3 Refills, Maintenance, 05/10/19 15:56:00 EST, Tablet, [facility]/pharmacy #[id number], 2 tablet By Mouth [...] Refills, Maintenance, 06/15/19 10:45:00 EDT, ER Tablet, [facility]/pharmacy #[id number], 165, cm, 05/25/19 9:28:00 [...] 1 Refills, Maintenance, 06/15/19 10:47:00 EDT, Capsule, [facility]/pharmacy #[id number], 165, cm, 05/25/19 9:28:00 [...]
--- OUTSIDE RECORDS SUMMARY | 2022-08-11 12:08 | XMS_ITS | Continuity of Care Document ---
Author Name Unknown Organization [facility] ter Address [address] [place] [address]- Care Team Providers Care Environmental Resource Specialist Name Role Phone Jonathan Lezama DO Primary Care Physician Encounter [facility] [place] Date(s): 05/15/19 - 05/22/[address] [address]- [facility] Encounter Diagnosis Papilledema(Final) - 05/14/19 Visual loss/Headache in setting of Intracranial hypertension(Final) - 05/15/19 Discharge Disposition: A-D/C Home Attending Physician: Jb Anderson MD Admitting Physician: Mckenna Bhagat MD Referring Physician: Not on Staff, Referring [...] tablet 500 mg, 2, tablet, By Mouth, 3 times a day, # 84 tablet, Refills 0, Tot. Refills 0, Maintenance, 05/22/19 11:18:00 EST, Route to Pharmacy Electronically, [facility], 165, cm, 05/21/19 23:05:00 EST, Height, 110.6, kg, 05/15/19 15:42:00 ES... Start Date: 05/22/19 Stop Date: 06/05/19 Status: Ordered calcitriol 0.5 mcg oral capsule 1 capsule = 0.5 mcg, By Mouth, 2 times a day, # 60 capsule, 1 Refills, Maintenance, 05/06/19 13:18:00 EST, Capsule, [facility], 165.1, cm, 05/06/19 11:49:00 EST, Height, 115.3, kg, 05/05/19 12:45:00 EST, Dry Weight Start Date: 05/06/19 Status: Ordered calcium (as citrate)-vitamin D 315 mg-250 intl units oral tablet 3 tablet, By Mouth, 3 times a day, # 120 tablet, 1 Refills, Maintenance, 05/06/19 13:20:00 EST, [facility], 3 tablet By Mouth 3 times a day, 165.1, cm, 05/06/19 11:49:00 EST, Height, 115.3, kg, 05/05/19 12:45:00 EST, Dry Weight Start Date: 05/06/19 Status: Ordered Caltrate 600 + D oral tablet 2 tablet, By Mouth, 3 times a day, # 180 tablet, 3 Refills, Maintenance, 05/10/19 15:56:00 EST, Tablet, [facility]/pharmacy #[id number], 2 tablet By [...] reconstitution = 17 Gm, By Mouth, Daily, for 7 days, dissolve in water before taking, # 119 Gm, 0 Refills, Acute 05/29/19 11:41:00 EDT, 05/22/19 11:41:00 EST, REC Powder, [facility], 17 Gm By Mouth Daily,x7 days,Instr:dissolve in water before taking, 1... Start Date: 05/22/19 Stop Date: 05/29/19 Status: Ordered potassium chloride 10 mEq oral tablet, extended release 2 tablet = 20 mEq, By Mouth, Daily, # 10 tablet, 0 Refills, Maintenance, 05/22/19 11:48:00 EST, ER Tablet, [facility], 165, cm, 05/21/19 23:05:00 EST, Height, 110.6, kg, 05/15/19 15:42:00 EST, Dry Weight Start Date: 05/22/19 Stop Date: 05/27/19 Status: Ordered Multivitamins with Folic Acid 0.8 mg oral tablet 1 tablet, By Mouth, Daily, # 180 tablet, 5 Refills, Maintenance, 09/12/18 13:44:10 EDT, Tablet Start Date: 09/12/18 Stop Date: 08/27/21 Status: Ordered Tylenol 325 mg oral tablet 975 mg, 3, tablet, By Mouth, Every 6 hours, for 10 days, # 120 tablet, Refills 0, Tot. Refills 0, Acute 06/01/19 11:17:00 EDT, 05/22/19 11:17:00 EST, Route to Pharmacy Electronically, [facility], 165, cm, 05/21/19 23:05:00 EST, Height, 1... Start Date: 05/22/19 Stop Date: 06/01/19 Status: Ordered Problem List Condition Effective Dates [...] June 2018 (intermittent will eat seafood). Results Orders for Microbiology Reports Name Date CSF Culture w/ Gram Smear 05/15/19 Microbiology Reports TEST:Spinal Fluid Culture STATUS:Auth (Verified) BODY SITE: SOURCE:CEREBR COLLECTED DATE/TIME:05/15/19 5:30 AM Spinal Fluid Culture SPECIMEN DESCRIPTION : CEREBROSPINAL FLUID SPECIAL REQUESTS : NONE GRAM STAIN : NO CELLS OR ORGANISMS SEEN CULTURE : NO GROWTH 3 DAYS REPORT STATUS : FINAL 05/18/2019 Vital Signs Most recent to oldest [Reference Range]: 1 2 3 Height 165 cm (05/21/19 11:05 PM) 165 cm (05/21/19 7:27 PM) 165 cm (05/21/19 8:21 AM) Weight 105 kg (05/15/19 11:33 AM) Oxygen Saturation [94-100 %] 100 % (05/21/19 11:05 PM) 100 % (05/21/19 7:27 PM) 98 % (05/21/19 4:00 PM) Pulse Rate [55-90 bpm] 59 bpm (05/21/19 11:05 PM) 71 bpm (05/21/19 7:27 PM) 73 bpm (05/21/19 4:00 PM) Body Mass Index [18.5-24.99] 38.57 *>HHI* (05/15/19 11:33 AM) Blood Pressure [90-138/55-84 mm Hg] 148/84mm Hg *H* (05/21/19 11:05 PM) 139/88mm Hg *H* (05/21/19 7:27 PM) 136/73mm Hg (05/21/19 4:00 PM) Respiratory Rate [16-30 br/min] 20 br/min (05/22/19 9:00 AM) 18 br/min (05/21/19 11:05 PM) 17 br/min (05/21/19 7:47 PM) Temperature [96.8-100.4 DegF] 97.0 DegF (05/21/19 11:05 PM) 97.8 DegF (05/21/19 7:27 PM) 97.9 DegF (05/21/19 4:00 PM) Liters per Minute 0 L/min (05/21/19 4:02 AM) 0 L/min (05/21/19 12:01 AM) 0 L/min (05/20/19 8:14 PM) Mode of Delivery (Oxygen) Room air (05/21/19 11:05 PM) Room air (05/21/19 7:27 PM) Room air (05/21/19 4:00 PM) Blood pressure sites Arm, right (05/21/19 11:05 PM) Arm, right (05/21/19 7:27 PM) Arm, right (05/21/19 4:00 PM) Temperature Route Temporal (05/21/19 11:05 PM) Temporal (05/21/19 7:27 PM) Temporal (05/21/19 4:00 PM) Dry Weight 110.6 kg (05/15/19 3:42 PM) 105 kg (05/15/19 11:33 AM) 110.6 kg (05/15/19 9:51 AM) Sensory deficits Blind, 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
--- OUTSIDE RECORDS SUMMARY | 2022-08-11 12:08 | XMS_ITS | Continuity of Care Document ---
Author Name Unknown Organization [facility] Address [address] [place] [address]- Care Team Providers Care Payroll Supervisor Name Role Phone Jonathan Lezama DO Primary Care Physician Encounter [facility] [place] Date(s): 04/23/19 - 06/09/19 [facility] [address] [place] [id number]- [facility] Attending Physician: Med Garcia MD Admitting Physician: Med Garcia MD Allergies, Adverse Reactions, Alerts Substance Reaction [...] 05/25/19 9:52:00 EST, Route to Pharmacy Electronically, [facility]/pharmacy #[id number], 165, cm, 05/25/19 9:28:00EST, Height, 110.6, kg, 05/15/19 15:42:00 EST, Dry... Start Date: 05/25/19 Stop Date: 12/21/19 Status: Ordered calcitriol 0.5 mcg oral capsule 1 capsule = 0.5 mcg, By Mouth, 2 times a day, # 60 capsule, 1 Refills, Maintenance, 05/06/19 13:18:00 EST, Capsule, [facility], 165.1, cm, 05/06/19 11:49:00 EST, Height, 115.3, kg, 05/05/19 12:45:00 EST, Dry Weight Start Date: 05/06/19 Status: Ordered calcium (as citrate)-vitamin D 315 mg-250 intl units oral tablet 3 tablet, By Mouth, 3 times a day, # 120 tablet, 1 Refills, Maintenance, 05/06/19 13:20:00 EST, [facility], 3 tablet By Mouth 3 times a day, 165.1, cm, 05/06/19 11:49:00 EST, Height, 115.3, kg, 05/05/19 12:45:00 EST, Dry Weight Start Date: 05/06/19 Status: Ordered Caltrate 600 + D oral tablet 2 tablet, By Mouth, 3 times a day, # 180 tablet, 3 Refills, Maintenance, 05/10/19 15:56:00 EST, [id number] 2 tablet By Mouth 3 times [...] Refills, Maintenance, 05/22/19 11:48:00 EST, ER Tablet, [facility], 165, cm, 05/21/19 23:05:00 [...]
--- OUTSIDE RECORDS SUMMARY | 2022-08-11 12:08 | XMS_ITS | Continuity of Care Document ---
Author Name Unknown Organization [facility] Address [address] [place] [address]- Care Team Providers Care Him Specialists Name Role Phone Teja Jonathan MONTOYA Primary Care Physician Encounter [facility] [place] Date(s): 03/02/19 - 03/02/[address] [address]- [facility] Attending Physician: Not on Staff, Attending MD [...] 12/01/18 17:07:48 EDT, Route to Pharmacy Electronically, [id number], [facility]/pharmacy #[id number] Start Date: 12/01/18 Status: Ordered Citracal Maximum + Vitamin D Tablet See Instructions, 3 tablet By Mouth 3 times a day, 0 Refills, Maintenance, 08/31/18 11:17:55 EDT, Tablet Start Date: 08/31/18 Status: Ordered levothyroxine 0.2 mg oral tablet [...] after [facility]. 5baseline labs ordered at [facility] w pregnacy. 5~age 21/24. Pt was seen in [...]
--- OUTSIDE RECORDS SUMMARY | 2022-08-11 12:08 | XMS_ITS | Continuity of Care Document ---
Author Name Unknown Organization [facility] Address [address] [place] [address]- Care Team Providers Care Gravity Meter Observer Name Role Phone Isela SOLANO, Jasmin Tellez Primary Care Physician [place] [facility] [place] 11[place]02[place]19 - 12/02/19 [facility] [address] [place] [address]- [facility] Allergies, Adverse Reactions, Alerts Substance Reaction Severity [...] 3 Refills, Maintenance, 05/10/19 15:56:00 EST, Tablet, [facility]/pharmacy #[id number], 2 tablet By Mouth 3 times a day,x30 days, 165.1, cm, 05/10/19 15:28:00 EST,Height, 115.3, kg, 05/05/19 12:45:00 EST, Dry Weight Start Date: 05/10/19 Stop Date: 09/07/19 Status: Ordered labetalol 100 mg oral tablet 1 tablet = 100 mg, By Mouth, 2 times a day, # 60 tablet, 2 Refills, Maintenance, 11/01/19 13:27:00 EDT, Tablet, [facility]/pharmacy #[id number], 165, cm, 10/30/19 13:34:00 [...] 0 Refills, Maintenance, 10/31/19 21:10:00 EDT, Tablet, [facility]/pharmacy #[id number], 165, cm, 10/30/19 13:34:00 EDT, Height, 110.6, kg, 05/15/19 15:42:00 EST, Dry Weight Start Date: 10/31/19 Status: Ordered potassium chloride 10 mEq oral tablet, extended release 2 tablet = 20 mEq, By Mouth, Daily, # 10 tablet, 3 Refills, Maintenance, 06/15/19 10:45:00 EDT, ER Tablet, [facility]/pharmacy #[id number], 165, cm, 05/25/19 9:28:00 [...]
--- OUTSIDE RECORDS SUMMARY | 2022-08-11 12:08 | XMS_ITS | Continuity of Care Document ---
Author Name Unknown Organization [facility] Address [address] [place] [address]- Care Team Providers Care Multicultural Manager Name Role Phone Teja MONTOYAJonathan Primary Care Physician En[place] [facility] [place] Date(s): 06/18/19 - 07/20/[address] [address]- [facility] Attending Physician: Not on Staff, [...] 05/25/19 9:52:00 EST, Route to Pharmacy Electronically, [facility]/pharmacy #[id number], 165, cm, 05/25/19 9:28:00EST, Height, 110.6, kg, 05/15/19 15:42:00 EST, Dry... Start Date: 05/25/19 Stop Date: 12/21/19 Status: Ordered calcitriol 0.5 mcg oral capsule 1 capsule = 0.5 mcg, By Mouth, 2 times a day, # 60 capsule, 1 Refills, Maintenance, 07/10/19 10:38:00 EDT, Capsule, [facility]/pharmacy #[id number], 165, cm, 05/25/19 9:28:00 EST, Height, 110.6, kg, 05/15/19 15:42:00 EST, Dry Weight Start Date: 07/10/19 Status: Ordered Caltrate 600 + D oral tablet 2 tablet, By Mouth, 3 times a day, # 180 tablet, 3 Refills, Maintenance, 05/10/19 15:56:00 EST, Tablet, [facility]/pharmacy #[id number], 2 tablet By Mouth 3 times [...] Refills, Maintenance, 06/15/19 10:45:00 EDT, ER Tablet, [facility]/pharmacy #[id number], 165, cm, 05/25/19 9:28:00 EST, Height, [...] 1 Refills, Maintenance, 06/15/19 10:47:00 EDT, Capsule, [facility]/pharmacy #[id number], 165, cm, 05/25/19 9:28:00 EST, Height, [...]
--- OUTSIDE RECORDS SUMMARY | 2022-08-11 12:08 | XMS_ITS | Continuity of Care Document ---
Author Name Unknown Organization [facility] ter Address [address] [place] [address]- Care Team Providers Care Snow Groomer Name Role Phone Teja Jonathan MONTOYA Primary Care Physician [phone] [place] [facility] [place] - 04/15/[address] [address]- [facility] Discharge Disposition: A-D/C Home Attending Physician: Klever Helms MD Admitting Physician: Klever Helms MD Referring Physician: Klever Helms MD Allergies, Adverse Reactions, Alerts Substance Reaction Severity Status Latex itchiness, redness Active Immunizations Given and Recorded Vaccine Date Status Refusal Reason influenza virus vaccine, inactivated 12/22/18 Give n Medications aspirin 81 mg oral delayed release tablet 81 mg, 1, tablet, By Mouth, Daily, # 90 tablet, Refills 2, Tot. Refills 2, Maintenance, 12/01/18 17:07:48 EDT, Route to Pharmacy Electronically, [id number], [id number] Start Date: 12/01/18 Status: Ordered [...] 0 Refills, Maintenance, 04/07/19 14:34:00 EST, Capsule, [facility]/pharmacy #[id number], 165, cm, 04/07/19 12:09:00 EST, Height, 111, kg, 04/03/19 1:32:00 EST, Dry Weight Start Date: 04/07/19 Status: Ordered ibuprofen 800 mg oral tablet 800 mg, 1, tablet, By Mouth, Every 8 hours, not to exceed 3200 mg/day with food or milk, # 40 tablet, Refills 0, Tot. Refills 0, Acute 05/09/19 14:34:00 EST, 04/07/19 14:34:00 EST, Route to Pharmacy Electronically, [facility]/pharmacy #[id number], 165, cm, ... Start Date: 04/07/19 [...] 14:35:00 EST, 04/07/19 14:34:00 EST, REC Powder, [facility]/pharmacy #[id number], 17 Gm By Mouth Daily,Instr:dissolvein water [...] 04/07/19 14:34:00 EST, Route to Pharmacy Electronically, [facility]/pharmacy #[id number], 165, cm, 04/07/19 12:09:00 EST, Height, [...] recent to oldest [Reference Range]: 1 Height 168 cm (04/15/19 1:56 PM) Weight 115.3 kg (04/15/19 1:56 PM) Oxygen Saturation [94-100 %] 100 % (04/15/19 1:56 PM) Pulse Rate [55-90 bpm] 90 bpm (04/15/19 1:56 PM) Body Mass Index [18.5-24.99] 40.85 *>HHI* (04/15/19 1:56 PM) Blood Pressure [90-138/55-84 mm Hg] 115/ 72mm Hg (04/15/19 1:56 PM) Respiratory Rate [16-30 br/min] 18 br/mi n (04/15/19 1:56 PM) Temperature [96.8-100.4 DegF] 98.7 DegF (04/15/19 1:56 PM) Mode of Delivery (Oxygen) Room air (04/15/19 1:56 PM) Blood pressure sites Arm, left (04/15/19 1:56 PM) Temperature Route Oral (04/15/19 1:56 PM) Dry Weight 115.3 kg (04/15/19 1:56 PM) Weight Obtained Via Standing scale (04/15/19 1:56 PM) Dry Weight Obtained Via Standing scale (04/15/19 1:56 PM) Social History Social History Type Response Smoking Status Never (less than 100 in lifetime); Tobacco user in household: No entered on: 03/17/18 Sex
--- OUTSIDE RECORDS SUMMARY | 2022-08-11 12:08 | XMS_ITS | Continuity of Care Document ---
Author Name Unknown Organization [facility] ter Address [address] [place] [address]- Care Team Providers Care Dope Firer Name Role Phone Jonathan Lezama DO Primary Care Physician Encounter [facility] [place] Date(s): 05/13/19 - 05/13/[address] [address]- [facility] Discharge Disposition: A-D/C Home Attending [...] 1 Refills, Maintenance, 05/06/19 13:18:00 EST, Capsule, [facility], 165.1, cm, 05/06/19 11:49:00 EST, Height, 115.3, kg, 05/05/19 12:45:00 EST, Dry Weight Start Date: 05/06/19 Status: Ordered calcium (as citrate)-vitamin D 315 mg-250 intl units oral tablet 3 tablet, By Mouth, 3 times a day, # 120 tablet, 1 Refills, Maintenance, 05/06/19 13:20:00 EST, [facility], 3 tablet By Mouth [...] 0 Refills, Maintenance, 05/06/19 13:28:00 EST, Gel, [facility], 165.1, cm, 05/06/19 11:49:00 EST, Height, 115.3, kg, 05/05/19 12:45:00EST, Dry Weight Start Date: 05/06/19 Status: Ordered ibuprofen 800 mg oral tablet 800 mg, 1, tablet, By Mouth, Every 8 hours, not to exceed 3200 mg/day with food or milk, # 40 tablet, Refills 0, Tot. Refills 0, Maintenance, 05/06/19 13:22:00 EST, Route to Pharmacy Electronically, [facility], 165.1, cm, 05/06/19 11:49... Start [...] 05/06/19 13:21:00 EST, Route to Pharmacy Electronically, [facility], 165.1, cm, 05/06/19 1... Start [...] Range]: 1 2 3 Height 165.10 cm (05/13/19 1:33 PM) Weight 111.6 kg (05/13/19 1:21 PM) Pulse Rate [55-90 bpm] 80 bpm (05/13/19 1:33 PM) Blood Pressure [90-138/55-84 mm Hg] 142/94mm Hg *H* (05/13/19 4:15 PM) 150/92mm Hg *H* (05/13/19 3:31 PM) 150/100mm Hg *H* (05/13/19 3:10 PM) Respiratory Rate [16-30 br/min] 20 br/min (05/13/19 5:00 PM) 20 br/min (05/13/19 4:21 PM) 20 br/min (05/13/19 1:33 PM) Temperature [96.8-100.4 DegF] 98.1 DegF (05/13/19 1:33 PM) Temperature Route Oral (05/13/19 1:33 PM) Weight Obtained Via Standing scale (05/13/19 1:21 PM) Social History Social History Type Response Smoking Status Never (less than 100 in lifetime); Tobacco user in household: No entered on: 03/17/18 Sex
--- OUTSIDE RECORDS SUMMARY | 2022-08-11 12:08 | XMS_ITS | Continuity of Care Document ---
Author Name Unknown Organization [facility] Address [address] [place] [address]- Care Team Providers Care Stevedoring Supervisor Name Role Phone Jonathan Lezama DO Primary Care Physician Encounter [facility] [place] Date(s): 04/23/19 - 07/18/[address] [address]- [facility] Attending Physician: Not on Staff, Attending MD Referring Physician: Jonathan Lezama DO Allergies, Adverse Reactions, Alerts Substance Reaction Severity [...] 1 Refills, Maintenance, 06/15/19 10:47:00 EDT, Capsule, [facility]/pharmacy #[id number], 165, cm, [...]
--- OUTSIDE RECORDS SUMMARY | 2022-08-11 12:08 | XMS_ITS | Continuity of Care Document ---
Author Name Unknown Organization [facility] Address [address] [place] [address]- Care Team Providers Care Automation Engineering Technician Name Role Phone Jc SOLANO, Alba Chatterjee Primary Care Physician [place] [facility] [place] - 10/24/21 [facility] [address] [place] [id number] Attending Physician: Med Garcia MD Admitting Physician: [...]
--- OUTSIDE RECORDS SUMMARY | 2022-08-11 12:08 | XMS_ITS | Continuity of Care Document ---
Author Name Unknown Organization [facility] ter Address [address] [place] [address]- Care Team Providers Care Location Man Name Role Phone Teja Jonathan MONTOYA Primary Care Physician [place] [facility] [place](s[place] 04/09/19 - 04/09/[address] [address]- [facility] Discharge Disposition: A-D/C Home Attending Physician: Kitty Cabrera MD Admitting Physician: Kitty Cabrera MD Referring Physician: Kitty Cabrera MD Allergies, Adverse Reactions, Alerts Substance Reaction Severity Status Latex itchiness, redness Active Immunizations Given and Recorded Vaccine Date Status Refusal Reason influenza virus vaccine, inactivated 12/22/18 Give n Medications aspirin 81 mg oral delayed release tablet 81 mg, 1, tablet, By Mouth, Daily, # 90 tablet, Refills 2, Tot. Refills 2, Maintenance, 12/01/18 17:07:48 EDT, Route to Pharmacy Electronically, [id number], [id number] Start Date: 12/01/18 Status: Ordered [...] Refills, Maintenance, 04/07/19 14:34:00 EST, Capsule, [facility]/pharmacy #[id number], 165, cm, 04/07/19 12:09:00 EST, Height, 111, kg, 04/03/19 1:32:00 EST, Dry Weight Start Date: 04/07/19 Status: Ordered Fioricet oral capsule 1 capsule, By Mouth, Every 4 hours, PRN as needed, not to exceed 4000 mg acetaminophen per day, # 7capsule, 0 Refills, Acute 04/18/19 18:38:00 EST, 04/07/19 18:38:00 EST, Capsule, [facility]/pharmacy #[id number], 1 capsule By Mouth Every 4 hours,PRN:as needed,Ins... Start Date: 04/07/19 Stop Date: 04/18/19 Status: Ordered ibuprofen 800 mg oral tablet 800 mg, 1, tablet, By Mouth, Every 8 hours, not to exceed 3200 mg/day with food or milk, # 40 tablet, Refills 0, Tot. Refills 0, Acute 05/09/19 14:34:00 EST, 04/07/19 14:34:00 EST, Route to Pharmacy Electronically, [facility]/pharmacy #[id number], 165, cm, ... Start Date: 04/07/19 [...] EST, 04/07/19 14:34:00 EST, REC Powder, [facility]/pharmacy #[id number], 17 Gm By Mouth Daily,Instr:dissolvein water before taking, 165, cm, 04/07/19 12:09:00... Start Date: 04/07/19 Stop Date: 05/09/19 Status: Ordered NIFEdipine 30 mg oral tablet, extended release 30 mg, 1, tablet, By Mouth, Every 12 hours, # 60 tablet, Refills 0, Tot. Refills 0, Maintenance, 04/07/19 14:34:00 EST, [id number], cm, 04/07/19 12:09:00 EST, Height, 111, kg, 04/03/19 1:32:00 EST, Dry We... Start Date: 04/07/19 Status: Ordered oxyCODONE 5 mg oral tablet 5 mg, 1, tablet, By Mouth, Every 6 hours, PRN, # 20 tablet, Refills 0, Tot. Refills 0, Acute 04/21/19 14:35:00 EST, Pain , Severe, 04/07/19 14:34:00 EST, [id number] Partial fill upon patient request, [...] 14:34:00 EST, Route to Pharmacy Electronically, [facility]/pharmacy #[id number], 165, cm, 04/07/19 12:09:00 EST, Height, [...] to oldest [Reference Range]: 1 2 3 Weight 115.8 kg (04/09/19 12:32 PM) Oxygen Saturation [94-100 %] 100 % (04/09/19 1:59 PM) Pulse Rate [55-90 bpm] 87 bpm (04/09/19 1:59 PM) 92 bpm *H* (04/09/19 12:39 PM) Blood Pressure [90-138/55-84 mm Hg] 129/81mm Hg (04/09/19 1:59 PM) 132/89mm Hg (04/09/19 12:39 PM) Respiratory Rate [16-30 br/min] 20 br/min (04/09/19 2:44 PM) 20 br/min (04/09/19 2:00 PM) 20 br/min (04/09/19 1:59 PM) Temperature [96.8-100.4 DegF] 98.9 DegF (04/09/19 12:39 PM) Temperature Route Oral (04/09/19 12:39 PM) Weight Obtained Via Standing scale (04/09/19 12:32 PM) Social History Social History Type Response Smoking Status Never (less than 100 in lifetime); Tobacco user in household: No entered on: 03/17/18 Sex
--- OUTSIDE RECORDS SUMMARY | 2022-08-11 12:08 | XMS_ITS | Continuity of Care Document ---
Author Name Unknown Organization [facility] Address [address] [place] [address]- Care Team Providers Care Rn Heart Name Role Phone Jonathan Lezama DO Primary Care Physician Encounter [facility] [place] Date(s): 05/30/19 - 07/20/19 [facility] [address] [place] [address]- [facility] Attending Physician: Vick Negro MD Admitting Physician: [...] 05/25/19 9:52:00 EST, Route to Pharmacy Electronically, [facility]/pharmacy #[id number], 165, cm, 05/25/19 9:28:00EST, Height, 110.6, kg, 05/15/19 15:42:00 EST, Dry... Start Date: 05/25/19 Stop Date: 12/21/19 Status: Ordered calcitriol 0.5 mcg oral capsule 1 capsule = 0.5 mcg, By Mouth, 2 times a day, # 60 capsule, 1 Refills, Maintenance, 07/10/19 10:38:00 EDT, Capsule, [facility]/pharmacy #[id number], 165, cm, 05/25/19 9:28:00 EST, Height, 110.6, kg, 05/15/19 15:42:00 EST, Dry Weight Start Date: 07/10/19 Status: Ordered Caltrate 600 + D oral tablet 2 tablet, By Mouth, 3 times a day, # 180 tablet, 3 Refills, Maintenance, 05/10/19 15:56:00 EST, Tablet, [facility]/pharmacy #[id number], 2 tablet By [...] Refills, Maintenance, 06/15/19 10:45:00 EDT, ER Tablet, [facility]/pharmacy #[id number], 165, cm, 05/25/19 [...] 1 Refills, Maintenance, 06/15/19 10:47:00 EDT, Capsule, [facility]/pharmacy #[id number], 165, cm, 05/25/19 [...]
--- OUTSIDE RECORDS SUMMARY | 2022-08-11 12:08 | XMS_ITS | Continuity of Care Document ---
Author Name Unknown Organization [facility] Address [address] [place] [address]- Care Team Providers Care Automobile Upholstery Trim Installer Name Role Phone Jc SOLANO, Alba Chatterjee Primary Care Physician Encounter [facility] [place] Date(s): 07/12/21 - 08/11/21 [facility] [address] [place] [id number] Allergies, Adverse Reactions, Alerts Substance Reaction [...] 11 Refills, Maintenance, 11/28/20 15:35:00 EDT, Tablet, [facility]/pharmacy #[id number], 2 tablet By Mouth 2 times a day,x30 days, 165, cm, 10/02/20 15:12:00 EDT, Height, 110.6, kg, 05/15/19 15:42:00 EST, Dry Weight Start Date: 11/28/20 Stop Date: 11/23/21 Status: Ordered labetalol 100 mg oral tablet 1 tablet = 100 mg, By Mouth, 2 times a day, # 60 tablet, 2 Refills, Maintenance, 11/01/19 13:27:00 EDT, Tablet, [facility]/pharmacy #[id number], 165, cm, 10/30/19 13:34:00 EDT, Height, 110.6, kg, 05/15/19 15:42:00 EST, Dry Weight Start Date: 11/01/19 Status: Ordered levothyroxine 150 mcg (0.15 mg) oral tablet 1 tablet = 150 mcg, By Mouth, Daily, # 30 tablet, 11 Refills, Maintenance, 10/02/20 6:52:00 EDT, [facility]/pharmacy #[id number], Partial fill upon patient request if the prescription is for a schedule II opioid drug., 165, cm, 08/27/20 15:58:00 EDT, Height, 110.6... Start Date: 10/02/20 Status: Ordered potassium chloride 10 mEq oral tablet, extended release 2 tablet = 20 mEq, By Mouth, Daily, # 10 tablet, 3 Refills, Maintenance, 06/15/19 10:45:00 EDT, ER Tablet, [facility]/pharmacy #[id number], 165, cm, 05/25/19 9:28:00 EST, [...]
--- OUTSIDE RECORDS SUMMARY | 2022-08-11 12:08 | XMS_ITS | Continuity of Care Document ---
Author Name Unknown Organization [facility] Address [address] [place] [address]- Care Team Providers Care Systems Security Analyst Name Role Phone Alba Greene MD Primary Care Physician Encounter [facility] [place](s): 05/20/21 - 09/10/21 [facility] [address] [place] [id number] Attending Physician: Med Garcia MD Admitting Physician: Med Garcia MD Referring Physician: Alba Greene MD Allergies, Adverse [...] Refills, Maintenance, 11/28/20 15:35:00 EDT, Tablet, [facility] #[id number], 2 tablet By Mouth 2 times a day,x30 days, 165, cm, 10/02/20 15:12:00 EDT, Height, 110.6, kg, 05/15/19 15:42:00 EST, Dry Weight Start Date: 11/28/20 Stop Date: 11/23/21 Status: Ordered labetalol 100 mg oral tablet 1 tablet = 100 mg, By Mouth, 2 times a day, # 60 tablet, 2 Refills, Maintenance, 11/01/19 13:27:00 EDT, Tablet, [facility]/pharmacy #[id number], 165, cm, 10/30/19 13:34:00 EDT, Height, 110.6, kg, 05/15/19 15:42:00 EST, Dry Weight Start Date: 11/01/19 Status: Ordered levothyroxine 150 mcg (0.15 mg) oral tablet 1 tablet = 150 mcg, By Mouth, Daily, # 30 tablet, 11 Refills, Maintenance, 10/02/20 6:52:00 EDT, [facility]/pharmacy #[id number], Partial fill upon patient [...]
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
--- OUTSIDE RECORDS SUMMARY | 2022-08-11 12:08 | XMS_ITS | Continuity of Care Document ---
Author Name Unknown Organization [facility] Address [address] [place] [address]- Care Team Providers Care Safety And Occupational Health Manager Name Role Phone Jonathan Lezama DO Primary Care Physician [phone] Encounter [facility] [place] Date(s): 03/02/19 - 05/20/19 [facility] [address] [place] [address]- [facility] Attending Physician: Med Garcia MD Admitting Physician: Med Gracia MD Referring Physician: Jonathan Lezama DO Allergies, [...] 1 Refills, Maintenance, 05/06/19 13:18:00 EST, Capsule, [facility], 165.1, cm, 05/06/19 11:49:00 EST, Height, 115.3, kg, 05/05/19 12:45:00 EST, Dry Weight Start Date: 05/06/19 Status: Ordered calcium (as citrate)-vitamin D 315 mg-250 intl units oral tablet 3 tablet, By Mouth, 3 times a day, # 120 tablet, 1 Refills, Maintenance, 05/06/19 13:20:00 EST, [facility], 3 tablet By Mouth 3 [...] 0 Refills, Maintenance, 05/06/19 13:28:00 EST, Gel, [facility], 165.1, cm, 05/06/19 11:49:00 EST, Height, 115.3, kg, 05/05/19 12:45:00EST, Dry Weight Start Date: 05/06/19 Status: Ordered ibuprofen 800 mg oral tablet 800 mg, 1, tablet, By Mouth, Every 8 hours, not to exceed 3200 mg/day with food or milk, # 40 tablet, Refills 0, Tot. Refills 0, Maintenance, 05/06/19 13:22:00 EST, Route to Pharmacy Electronically, [facility], 165.1, cm, 05/06/19 11:49... Start [...] 05/06/19 13:21:00 EST, Route to Pharmacy Electronically, [facility], 165.1, cm, 05/06/19 1... Start Date: [...]
--- OUTSIDE RECORDS SUMMARY | 2022-08-11 12:08 | XMS_ITS | Continuity of Care Document ---
Author Name Unknown Organization [facility] Address [address] [place] [address]- Care Team Providers Care Upholsterer Outside Name Role Phone Isela SOLANO, Jasmin Tellez Primary Care Physician [place] [facility] [place] 06/05/20 [facility] [address] [place] [id number] Attending Physician: John Garnica MD Admitting Physician: John Garnica MD Referring Physician: Jasmin Weiss MD Allergies, [...] 01/21/20 11:44:00 EST, Route to Pharmacy Electronically, [facility]/pharmacy #[id number], 165, cm, 11/30/19 13:28:00 EDT, Height, [...] 3 Refills, Maintenance, 05/10/19 15:56:00 EST, Tablet, [facility]/pharmacy #[id number], 2 tablet By Mouth 3 times a day,x30 days, 165.1, cm, 05/10/19 15:28:00 EST,Height, 115.3, kg, 05/05/19 12:45:00 EST, Dry Weight Start Date: 05/10/19 Stop Date: 09/07/19 Status: Ordered labetalol 100 mg oral tablet 1 tablet = 100 mg, By Mouth, 2 times a day, # 60 tablet, 2 Refills, Maintenance, 11/01/19 13:27:00 EDT, Tablet, [facility]/pharmacy #[id number], 165, cm, 10/30/19 13:34:00 EDT, Height, 110.6, kg, 05/15/19 15:42:00 EST, Dry Weight Start Date: 11/01/19 Status: Ordered levothyroxine 150 mcg (0.15 mg) oral tablet 1 tablet = 150 mcg, By Mouth, Daily, # 30 tablet, 1 Refills, Maintenance, 02/29/20 9:02:00 EST, [facility]/pharmacy #[id number], Partial fill upon patient request if the prescription is for a schedule II opioid drug., 165, cm, 11/30/19 13:28:00 EDT, Height, 110.6,... Start Date: 02/29/20 Status: Ordered potassium chloride 10 mEq oral tablet, extended release 2 tablet = 20 mEq, By Mouth, Daily, # 10 tablet, 3 Refills, Maintenance, 06/15/19 10:45:00 EDT, ER Tablet, [facility]/pharmacy #[id number], 165, cm, 05/25/19 9:28:00 EST, Height, [...]
--- OUTSIDE RECORDS SUMMARY | 2022-08-11 12:08 | XMS_ITS | Continuity of Care Document ---
Author Name Unknown Organization [facility] ter Address [address] [place] [id number]- Care Team Providers Care Health Care Technician Name Role Phone Teja Jonathan MONTOYA Primary Care Physician [phone] [place] [facility] [place] - 05/03/[address] [address]- [facility] Discharge Disposition: A-D/C Home Attending Physician: Kellie Saeed MD Admitting Physician: Kellie Saeed MD Referring Physician: Kellie Saeed MD Allergies, Adverse Reactions, Alerts Substance Reaction Severity Status Latex itchiness, redness Active Immunizations Given and Recorded Vaccine Date Status Refusal Reason influenza virus vaccine, inactivated 12/22/18 Give n Medications calcitriol 0.25 mcg oral capsule 1 capsule [...] EDT, Tablet Start Date: 08/31/18 Status: Ordered ibuprofen 800 mg oral tablet 800 mg, 1, tablet, By Mouth, Every 8 hours, not to exceed 3200 mg/day with food or milk, # 40 tablet, Refills 0, Tot. Refills 0, Acute 05/09/19 14:34:00 EST, 04/07/19 14:34:00 EST, Route to Pharmacy Electronically, [facility]/pharmacy #[id number], 165, cm, ... Start Date: 04/07/19 [...] recent to oldest [Reference Range]: 1 2 Height 168 cm (05/03/19 7:55 AM) Pulse Rate [55-90 bpm] 83 bpm (05/03/19 7:55 AM) Blood Pressure [90-138/55-84 mm Hg] 131/ 87mm Hg (05/03/19 8:30 AM) 144/93mm Hg *H* (05/03/19 7:55 AM) Respiratory Rate [16-30 br/min] 24 br/mi n (05/03/19 7:55 AM) Temperature [96.8-100.4 DegF] 98.3 DegF (05/03/19 7:55 AM) Temperature Route Oral (05/03/19 7:55 AM) Social History Social History Type Response Smoking Status Never (less than 100 in lifetime); Tobacco user in household: No entered on: 03/17/18 Sex
--- OUTSIDE RECORDS SUMMARY | 2022-08-11 12:08 | XMS_ITS | Continuity of Care Document ---
Author Name Unknown Organization [facility] Address [address] [place] [address]- Care Team Providers Care Airplane Electrician Name Role Phone Jc SOLANO, Alba Chatterjee Primary Care Physician ( [phone] Encounter [facility] [place] Date(s): 11/28/20 - 12/28/20 [facility] [address] [place] [id number] Attending Physician: Nolvia Rojas Admitting Physician: Nolvia Rojas Referring Physician: AdmNolvia brooks Allergies, Adverse Reactions, [...] 10/22/20 13:47:00 EDT, Route to Pharmacy Electronically, [facility]/pharmacy #[id number], 165, cm, 10/02/20 15:12:00 EDT, Height, [...] 11 Refills, Maintenance, 10/02/20 6:52:00 EDT, Capsule, [facility]/pharmacy #[id number], 165, cm, 08/27/20 15:58:00 EDT, Height, 110.6, kg, 05/15/19 15:42:00 EST, Dry Weight Start Date: 10/02/20 Status: Ordered Caltrate 600 + D oral tablet 2 tablet, By Mouth, 2 times a day, # 120 tablet, 11 Refills, Maintenance, 11/28/20 15:35:00 EDT, Tablet, [facility]/pharmacy #[id number], 2 tablet By Mouth 2 times a day,x30 days, 165, cm, 10/02/20 15:12:00 EDT, Height, 110.6, kg, 05/15/19 15:42:00 EST, Dry Weight Start Date: 11/28/20 Stop Date: 11/23/21 Status: Ordered labetalol 100 mg oral tablet 1 tablet = 100 mg, By Mouth, 2 times a day, # 60 tablet, 2 Refills, Maintenance, 11/01/19 13:27:00 EDT, Tablet, [facility]/pharmacy #[id number], 165, cm, 10/30/19 13:34:00 EDT, Height, 110.6, kg, 05/15/19 15:42:00 EST, Dry Weight Start Date: 11/01/19 Status: Ordered levothyroxine 150 mcg (0.15 mg) oral tablet 1 tablet = 150 mcg, By Mouth, Daily, # 30 tablet, 11 Refills, Maintenance, 10/02/20 6:52:00 EDT, [facility]/pharmacy #[id number], Partial fill upon patient request if [...] 1 Refills, Maintenance, 06/15/19 10:47:00 EDT, Capsule, [facility]/pharmacy #[id number], 165, cm, 05/25/19 9:28:00 EST, Height, [...]
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
[2022-08-11] MEDS: Diphth,Pertus(ACell),Tet Adult 0.5 ML SYRINGE IM (13:58)
[2022-08-11] MEDS: Acetaminophen 325 MG TABLET 650 MG PO (13:58)
[2022-08-11] MEDS: Cyclobenzaprine HCl 10 MG TABLET PO (13:59)
[2022-08-11] MEDS: Ibuprofen 600 MG TABLET PO (13:59)
[2022-08-11] MEDS: Bacitracin Oint 0.9 GM PACKET 1 APPL TOPICAL (15:10)
== END 2022-08-11 15:31 | disposition home or self-care (01) ==
PROVIDERS: Emergency Provider Emergency Medicine Emergency Medical Services
DX: S61.011A Laceration without foreign body of right thumb without damage to nail, initial encounter (principal); S80.11XA Contusion of right lower leg, initial encounter; V47.0XXA Car driver injured in collision with fixed or stationary object in nontraffic accident, initial encounter; Y93.89 Activity, other specified; Y92.414 Local residential or business street as the place of occurrence of the external cause; Y99.9 Unspecified external cause status
CPT/HCPCS: 12001; 29130; 73130; 90471; 90715; 99283; 99284